=== PATIENT | female | born 1975 | race Caucasian/White ===

== ENCOUNTER 2019-11-25 08:36 | Observation (INO) | payer OTHER, SELFPAY ==
--- NOTE | 2019-11-25 09:29 | ER ---
Nurse's Notes [facility] Name: Shantelle Keith Age: 44 yrs Sex: Female : 1975 Arrival Date: 11/25/2019 Time: 08:41 Bed 8 Private MD: Diagnosis: Other chest pain;Obesity, unspecified;Edema, unspecified;Tobacco abuse counseling;Tobacco use;Solitary pulmonary nodule Presentation: 11/25 08:55 Presenting complaint: Substernal chest pain that radiates to left upper chest and hb shoulder, palpitations, and SOB x 2-3 days. Pain is described as tightness. Transition of care: patient was not received from another setting of care. Onset of symptoms was November 23, 2019. Risk Assessment: Do you want to hurt yourself or someone else? Patient reports no desire to harm self or others. Initial Sepsis Screen: Does the patient meet any 2 criteria? No. Patient's initial sepsis screen is negative. Does the patient have a suspected source of infection? No. Patient's initial sepsis screen is negative. Care prior to arrival: None. 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 - Social history:: Smoking status: Patient uses tobacco products, smokes one-half pack cigarettes per day. - Ebola Screening: : No symptoms or risks identified at this time. - Family history:: not pertinent. Screenin:22 Abuse screen: Denies threats or abuse. Denies injuries from another. Nutritional jl7 screening: No deficits noted. Tuberculosis screening: No symptoms or risk factors identified. Fall Risk IV access (20 points). Total Soto Fall Scale indicates No Risk (0-24 pts). Assessment: 09:10 General: Appears in no apparent distress. uncomfortable, Behavior is calm, cooperative, jl7 appropriate for age. Pain: Complains of pain in anterior aspect of left upper chest Pain radiates to left shoulder and arm Pain currently is 6 out of 10 on a pain scale. at worst was 10 out of 10 on a pain scale. Quality of pain is described as pressure, Pain began 2-3 days ago. Is intermittent. Neuro: Level of Consciousness is awake, alert, obeys commands, Oriented to person, place, time, situation. Cardiovascular: Reports chest pain, palpitations, shortness of breath, Heart tones S1 S2 present Patient's skin is warm and dry. Rhythm is regular. Respiratory: Reports shortness of breath at rest Airway is patent Respiratory effort is even, unlabored, Breath sounds are clear bilaterally. Derm: Skin is pink, warm \\T\\ dry. 09:35 Reassessment: Pt in radiology, medications will be administered once she returns. jl7 11:30 Reassessment: Pt returned from radiology. jl7 11:35 Reassessment: Pt refusing fluids at this time, states "I have diabetes insipidus and I jl7 don't want any more fluids.". 12:47 Reassessment: Attempted to call report to floor, receiving nurse Landy RN is at lunch at this time. Vital Signs: 09:01 BP 161 / 108; Pulse 90; Resp 16; Temp 97.2; Pulse Ox 100% ; Weight 145.15 kg; Height 5 hb ft. 6 in. (167.64 cm); Pain 6/10; 09:30 BP 142 / 84; Pulse 87; Resp 16 S; Pulse Ox 97% on R/A; jl7 11:30 BP 133 / 91; Pulse 80; Resp 19 S; Pulse Ox 97% on R/A; jl7 12:25 BP 126 / 94; Pulse 70; Resp 17 S; Pulse Ox 96% on R/A; jl7 09:01 Body Mass Index 51.65 (145.15 kg, 167.64 cm) ED Course: 08:41 Patient arrived in ED. mr 08:51 Kirk Alanis MD is Attending Physician. sam 08:56 Mihai Mishra, CESAR is Primary Nurse. jl7 08:56 Triage completed. hb 09:01 Arm band placed on. hb 09:06 EKG done, by land survey technician. reviewed by Kirk Alanis MD. at1 09:10 Missed attempt(s): 22 gauge in right forearm. jl7 09:22 Patient has correct armband on for positive identification. Bed in low position. Call jl7 light in reach. Side rails up X 1. conveyor monitor on. Pulse ox on. NIBP on. 09:22 Initial lab(s) drawn, by me, sent to lab. Inserted saline lock: 20 gauge in right jl7 antecubital area, using aseptic technique. Blood collected. 09:27 Bibi Lee MD is Hospitalizing Provider[facility] 09:30 Urine collected: clean catch specimen, clear. dh3 09:56 XRAY Chest (1 view) In Process Unspecified. EDMS 11:19 US Extremity Venous W Compression Varun In Process Unspecified. EDMS 11:20 CT Chest For PE Angio In Process Unspecified. EDMS 13:21 No provider procedures requiring assistance completed. Patient admitted, IV remains in jl7 place. intact, No redness/swelling at site. Administered Medications: 11:35 Drug: Aspirin Chewable Tablet 324 mg Route: PO; jl7 12:24 Follow up: Response: No adverse reaction jl7 11:35 Drug: Lovenox 100 mg Route: Sub-Q; Site: abdomen; jl7 12:24 Follow up: Response: No adverse reaction jl7 11:36 Drug: Lopressor (metoprolol TARTRATE) 50 mg Route: PO; jl7 12:24 Follow up: Response: No adverse reaction jl7 11:40 Drug: Lopressor 2.5 mg Route: IVP; Site: right antecubital; jl7 12:24 Follow up: Response: No adverse reaction jl7 12:28 Not Given (Patient Refused): NS 0.9% 1000 ml IV at 75 ml/hr continuous jl7 12:28 Not Given (Physician Discretion): Lopressor 2.5 mg IVP once; Hold for SBP <100 or HR jl7 <60. Outcome: :28 Decision to Hospitalize by Provider. [facility] 13:21 Admitted to Tele accompanied by tech, via wheelchair, room 208, with chart, Report jl7 called to CESAR Bill 13:21 Condition: stable 13:21 Discharge instructions given to family, Instructed on the need for admit, Demonstrated understanding of instructions. 13:22 Patient left the ED. jl7 Signatures: Dispatcher [employer] Kirk Yang MD MD cha Rivera, Ellen Saxena, coal bagger EKG Tat1 Elsie Lopez, CESAR RN Mihai Mishra RN RN jl7 Shira Finch 3 Corrections: (The following items were deleted from the chart) 11:38 10:08 BP 142 / 84; Pulse 87bpm; Resp 16bpm; Spontaneous; Pulse Ox 97% RA; jl7 jl7 12:27 12:25 LMP N/A - Hysterectomy [facility] jl7
--- NOTE | 2019-11-25 09:29 | EDPHYS ---
Physician Documentation [facility] Name: Shantelle Keith Age: 44 yrs Sex: Female : 1975 Arrival Date: 11/25/2019 Time: 08:41 Bed 8 Private MD: ED Physician Kirk Alanis HPI: 11/25 09:22 This 44 yrs old Female presents to ER via Ambulatory with complaints of sam Breathing Difficulty, Shoulder Pain. 09:22 The patient has shortness of breath at rest, with light activity. Onset: The sam symptoms/episode began/occurred 2 day(s) ago. Duration: The symptoms are continuous, and are steadily getting worse. The patient's shortness of breath has no apparent modifying factors. Associated signs and symptoms: Pertinent positives: chest pain, dizziness. Severity of symptoms: At their worst the symptoms were moderate in the emergency department the symptoms are unchanged. The patient has not experienced similar symptoms in the past. 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 - Social history:: Smoking status: Patient uses tobacco products, smokes one-half pack cigarettes per day. - Ebola Screening: : No symptoms or risks identified at this time. - Family history:: not pertinent. ROS: 09:22 Constitutional: Negative for fever, chills, and weight loss, Eyes: Negative for injury, sam pain, redness, and discharge, ENT: Negative for injury, pain, and discharge, Neck: Negative for injury, pain, and swelling, Abdomen/GI: Negative for abdominal pain, nausea, vomiting, diarrhea, and constipation, Back: Negative for injury and pain, : Negative for injury, bleeding, discharge, and swelling, MS/Extremity: Negative for injury and deformity, Skin: Negative for injury, rash, and discoloration, Neuro: Negative for headache, weakness, numbness, tingling, and seizure, Psych: Negative for depression, anxiety, suicide ideation, homicidal ideation, and hallucinations, Allergy/Immunology: Negative for hives, rash, and allergies, Endocrine: Negative for neck swelling, polydipsia, polyuria, polyphagia, and marked weight changes, Hematologic/Lymphatic: Negative for swollen nodes, abnormal bleeding, and unusual bruising. 09:22 Cardiovascular: Positive for chest pain. 09:22 Respiratory: Positive for shortness of breath, at rest. Exam: :22 Constitutional: This is a well developed, well nourished patient who is awake, alert, sam and in no acute distress. Head/Face: Normocephalic, atraumatic. Eyes: Pupils equal round and reactive to light, extra-ocular motions intact. Lids and lashes normal. Conjunctiva and sclera are non-icteric and not injected. Cornea within normal limits. Periorbital areas with no swelling, redness, or edema. ENT: Nares patent. No nasal discharge, no septal abnormalities noted. Tympanic membranes are normal and external auditory canals are clear. Oropharynx with no redness, swelling, or masses, exudates, or evidence of obstruction, uvula midline. Mucous membranes moist. Neck: Trachea midline, no thyromegaly or masses palpated, and no cervical lymphadenopathy. Supple, full range of motion without nuchal rigidity, or vertebral point tenderness. No Meningismus. Chest/axilla: Normal chest wall appearance and motion. Nontender with no deformity. No lesions are appreciated. Cardiovascular: Regular rate and rhythm with a normal S1 and S2. No gallops, murmurs, or rubs. Normal PMI, no JVD. No pulse deficits. Respiratory: Lungs have equal breath sounds bilaterally, clear to auscultation and percussion. No rales, rhonchi or wheezes noted. No increased work of breathing, no retractions or nasal flaring. Abdomen/GI: Soft, non-tender, with normal bowel sounds. No distension or tympany. No guarding or rebound. No evidence of tenderness throughout. Back: No spinal tenderness. No costovertebral tenderness. Full range of motion. Skin: Warm, dry with normal turgor. Normal color with no rashes, no lesions, and no evidence of cellulitis. Neuro: Awake and alert, GCS 15, oriented to person, place, time, and situation. Cranial nerves II-XII grossly intact. Motor strength 5/5 in all extremities. Sensory grossly intact. Cerebellar exam normal. Normal gait. Psych: Awake, alert, with orientation to person, place and time. Behavior, mood, and affect are within normal limits. 09:22 Musculoskeletal/extremity: Extremities: erythema, pain, swelling, tenderness. 09:24 Musculoskeletal/extremity: DVT Exam: negative Homans' sign noted on exam, no sam appreciated bluish discoloration, pain, swelling, tenderness, erythema, increased warmth. Vital Signs: 09:01 BP 161 / 108; Pulse 90; Resp 16; Temp 97.2; Pulse Ox 100% ; Weight 145.15 kg; Height 5 hb ft. 6 in. (167.64 cm); Pain 6/10; 09:30 BP 142 / 84; Pulse 87; Resp 16 S; Pulse Ox 97% on R/A; jl7 11:30 BP 133 / 91; Pulse 80; Resp 19 S; Pulse Ox 97% on R/A; jl7 12:25 BP 126 / 94; Pulse 70; Resp 17 S; Pulse Ox 96% on R/A; jl7 09:01 Body Mass Index 51.65 (145.15 kg, 167.64 cm) hb MDM: 08:51 Patient medically screened. 11/25 09:22 Order name: Basic Metabolic Panel; Complete Time: 10:52 sam 11/25 09:22 Order name: CBC with Diff; Complete Time: 09:58 11/25 09:22 Order name: LFT's; Complete Time: 10:52 sam 11/25 09:22 Order name: Magnesium; Complete Time: 10:52 11/25 09:22 Order name: NT PRO-BNP; Complete Time: 10:52 11/25 09:22 Order name: PT-INR; Complete Time: 09:58 [facility] 11/25 09:22 Order name: Troponin (emerg Dept Use Only); Complete Time: 10:52 [facility] 11/25 09:22 Order name: XRAY Chest (1 view) 11/25 09:22 Order name: Lipase; Complete Time: 10:52 [facility] 11/25 09:22 Order name: D-Dimer; Complete Time: 09:58 11/25 09:22 Order name: TSH; Complete Time: 10:52 [facility] 11/25 09:42 Order name: Urine Dipstick--Ancillary (enter results); Complete Time: 10:52 11/25 09:42 Order name: Urine --Ancillary (enter results); Complete Time: 10:52 11/25 09:50 Order name: US Extremity Venous W Compression Varun 11/25 09:22 Order name: EKG; Complete Time: 09:23 [facility] 11/25 09:22 Order name: Cardiac monitoring; Complete Time: 09:33 [facility] 11/25 09:22 Order name: EKG - Nurse/Tech; Complete Time: 09:33 [facility] 11/25 09:22 Order name: IV Saline Lock; Complete Time: 09:33 [facility] 11/25 09:22 Order name: Labs collected and sent; Complete Time: 09:33 [facility] 11/25 09:22 Order name: O2 Per Protocol; Complete Time: 09:33 [facility] 11/25 09:22 Order name: O2 Sat Monitoring; Complete Time: 09:23 [facility] 11/25 09:50 Order name: CT Chest For PE Angio 11/25 11:37 Order name: CONS Pharmacy Consult [facility] 11/25 12:25 Order name: Echo w/ Doppler [facility] 11/25 09:22 Order name: Urine Dipstick-Ancillary (obtain specimen); Complete Time: 10:23 [facility] 11/25 09:22 Order name: Urine Test (obtain specimen); Complete Time: 10:23 [facility] Administered Medications: 11:35 Drug: Aspirin Chewable Tablet 324 mg Route: PO; jl7 12:24 Follow up: Response: No adverse reaction jl7 11:35 Drug: Lovenox 100 mg Route: Sub-Q; Site: abdomen; jl7 12:24 Follow up: Response: No adverse reaction jl7 11:36 Drug: Lopressor (metoprolol TARTRATE) 50 mg Route: PO; jl7 12:24 Follow up: Response: No adverse reaction jl7 11:40 Drug: Lopressor 2.5 mg Route: IVP; Site: right antecubital; jl7 12:24 Follow up: Response: No adverse reaction jl7 12:28 Not Given (Patient Refused): NS 0.9% 1000 ml IV at 75 ml/hr continuous jl7 12:28 Not Given (Physician Discretion): Lopressor 2.5 mg IVP once; Hold for SBP <100 or HR jl7 <60. Disposition: 01/17/20 09:28 Hospitalization ordered by Bibi Lee for Observation. Preliminary diagnosis are Other chest pain, Obesity, unspecified, Edema, unspecified, Tobacco abuse counseling, Tobacco use, Solitary pulmonary nodule. - Bed requested for Telemetry/MedSurg (observation). - Status is Observation. mayela - Condition is Fair. - Problem is new. - Symptoms have improved. UTI on Admission? No Signatures: Dispatcher [employer] EDMS Wanda Kellogg RN RN dw Anderson, Corey, MD MD cha Baxter, Heather, RN RN Mihai Larson RN RN [email or web address] Tessa Reid Corrections: (The following items were deleted from the chart) 09:34 09:28 Hospitalization Ordered by Bibi Lee MD for Observation. Preliminary eb diagnosis is Other chest pain; Obesity, unspecified; Edema, unspecified; Tobacco abuse counseling; Tobacco use. Bed requested for Telemetry/MedSurg (observation). Status is Observation. Condition is Fair. Problem is new. Symptoms have improved. UTI on Admission? No. sam 12:00 09:34 11/25/2019 09:28 Hospitalization Ordered by Bibi Lee MD for Observation. [email or web address] Preliminary diagnosis is Other chest pain; Obesity, unspecified; Edema, unspecified; Tobacco abuse counseling; Tobacco use. Bed requested for Telemetry/MedSurg (observation). Status is Observation. Condition is Fair. Problem is new. Symptoms have improved. UTI on Admission? No. eb 12:20 12:00 11/25/2019 09:28 Hospitalization Ordered by Bibi Lee MD for Observation. sam Preliminary diagnosis is Other chest pain; Obesity, unspecified; Edema, unspecified; Tobacco abuse counseling; Tobacco use. Bed requested for Telemetry/MedSurg (observation). Status is Observation. Condition is Fair. Problem is new. Symptoms have improved. UTI on Admission? No. dw 13:22 12:20 11/25/2019 09:28 Hospitalization Ordered by Bibi Lee MD for Observation. [email or web address] Preliminary diagnosis is Other chest pain; Obesity, unspecified; Edema, unspecified; Tobacco abuse counseling; Tobacco use; Solitary pulmonary nodule. Bed requested for Telemetry/MedSurg (observation). Status is Observation. Condition is Fair. Problem is new. Symptoms have improved. UTI on Admission? No. sam
[2019-11-25] MEDS ORDERED: ENOXAPARIN 100 MG/ML SYR SQ ONE (09:40)
[2019-11-25] MEDS ORDERED: ASPIRIN 81 MG CHEWABLE TABLET ONE (09:40)
[2019-11-25] MEDS ORDERED: METOPROLOL TAR 50 MG TAB ONE (09:40)
[2019-11-25] MEDS ORDERED: NA CHLORIDE 0.9% 0 ML ONE (09:41)
[2019-11-25 09:42] LABS: Absolute Lymphocytes (CBC) 1.9 K/uL (0.7-4.9); Basophils % 0.9 % (0-1.3); Hematocrit 41.9 % (36.0-45.0); RBC Red Blood Cell Count 4.88 M/uL (3.86-4.86)
[2019-11-25 09:47] LABS: Protime INR 1.04
[2019-11-25 10:10] LABS: Urine Blood NEGATIVE (NEG); Urine Glucose NEGATIVE (NEG); Urine Protein NEGATIVE (NEG); Urine pH 8.5 (5.0-7.0)
[2019-11-25 10:11] LABS: ALT/SGPT 17 U/L (12-78); AST/SGOT 12 U/L (15-37); Albumin 3.3 g/dL (3.4-5.0); Alkaline Phosphatase 78 U/L (45-117); BUN Blood Urea Nitrogen 11 mg/dL (7-18); Bicarbonate 33 mmol/L (21-32); Bilirubin Direct 0.1 mg/dL (0-0.2); Bilirubin Total 0.3 mg/dL (0.2-1.0); Glucose Level 94 mg/dL (74-106); Lipase 151 U/L (73-393); Magnesium 2.2 mg/dL (1.8-2.4); NT PRO-BNP 22 pg/mL (<125); Potassium 3.8 mmol/L (3.5-5.1); Protein, Total 7.1 g/dL (6.4-8.2); Sodium Level 143 mmol/L (136-145); Troponin (Emerg Dept Use Only) < 0.02 ng/mL (0.0-0.045)
[2019-11-25] MEDS ORDERED: ALBUTEROL 2.5 MG/3 ML NEB SOL NEB PRN (11:35)
[2019-11-25] MEDS ORDERED: ACETAMINOPHEN 500 MG TAB PO PRN (11:35)
[2019-11-25] MEDS ORDERED: ONDANSETRON 4 MG/2 ML VIAL IV PRN (11:35)
--- NOTE | 2019-11-25 11:37 | P.HP ---
Certification for Inpatient Patient admitted to: Observation Practitioner: I am a practitioner with admitting privileges, knowledge of patient current condition, hospital course, and medical plan of care. Services: Services provided to patient in accordance with Admission requirements found in Title 42 Section 412.3 of the Code of Federal Regulations Patient History Date of Service: 11/25/19 Reason for admission: Chest pain History of Present Illness: Ms. Keith is 44 y/o female with h/o hypertension who presented with c/o substernal chest pain that started yesterday. Pain was initially mild, felt like pressure and associated with shortness of breath. Last night, pain awoke her from sleep as it was at high intensity. Pain did not radiate and non exertional. She was diaphoretic with pain. She is currently chest pain free. She had similar pain 2 months ago, was evaluated at [facility], discharged after 24 hours of observation as ACS was ruled out. Allergies No Known Allergies Allergy (Unverified 11/25/19 11:54) Home medications list reviewed: Yes Home Medications: Atorvastatin Calcium 20 mg PO BEDTIME 11/25/19 Desmopressin (Nonrefrigerated) [Desmopressin 10 Mcg/0.1 ml Spr] 1 spray NS BID 11/25/19 Losartan/Hydrochlorothiazide [Losartan-Hctz 100-25 mg Tab] 1 each PO BEDTIME - Past Medical/Surgical History -: Hypertension -: Hyperlipidemia -: Diabetes Insipidus -: C section -: Cholecysectomy - Social History Smoking Status: Current every day smoker Alcohol use: No CD- Drugs: No Review of Systems 10-point ROS is otherwise unremarkable Respiratory: Shortness of Breath Cardiovascular: Chest Pain Physical Examination - Physical Exam General: Alert, In no apparent distress, Obese HEENT: Atraumatic, PERRLA, Mucous membr. moist/pink, EOMI, Sclerae nonicteric Neck: Supple, 2+ carotid pulse no bruit, No LAD, Without JVD or thyroid abnormality Respiratory: Clear to auscultation bilaterally, Normal air movement Cardiovascular: Regular rate/rhythm, Normal S1 S2, Edema Gastrointestinal: Normal bowel sounds, No tenderness Musculoskeletal: No tenderness, Swelling Integumentary: No rashes Neurological: Normal gait, Normal speech, Normal strength at 5/5 x4 extr, Normal tone, Normal affect Lymphatics: No axilla or inguinal lymphadenopathy - Studies Laboratory Data (last 24 hrs) 11/25/19 09:20: PT 12.2, INR 1.04 11/25/19 09:20: WBC 6.2, Hgb 13.5, Hct 41.9, Plt Count 217 11/25/19 09:20: Sodium 143, Potassium 3.8, BUN 11, Creatinine 0.71, Glucose 94, Magnesium 2.2, Total Bilirubin 0.3, AST 12 L, ALT 17, Alkaline Phosphatase 78, Lipase 151 Imagings Data: IMPRESSION: Negative for a pulmonary embolism. COPD 1 centimeter noncalcified nodule left lower lobe. PET CT scan recommended IMPRESSION: No DVT in either lower extremity. Assessment and Plan - Plan Ms Keith is 44 y/o female with h/o DI, Morbid obesity, HTN pw chest pain #Chest pain-rule out ACS. Trop X1 neg, EKG with no acute ischemic changes. -Patient with risk factors -D dimer elevated, PE ruled out -Aspirin, statin -Echocardiogram, consult explosive technician -possible anxiety +/- lung etiology #Hypertension- resumed on antihypertensive -monitor BP closely #DI- Na is wnl. -resume desmopressin #Obesity & tobacco use- lifestyle modification strongly encouraged #Lung nodule- PET scan and further work recommended. -outpatient follow #COPD- per imaging - needs outpt work up -duonebs. no acute exacerbation noted. DVT ppx- lovenox patient is full dispo-obs admission. - Advance Directives Does patient have a Living Will: No Does patient have a Durable POA for Healthcare: No
--- NOTE | 2019-11-25 11:38 | RAD REPORT ---
EXAM DESCRIPTION: CT - Chest For Pe Angio - 11/25/2019 11:20 am CLINICAL HISTORY: Chest pain COMPARISON: None. TECHNIQUE: Dynamically enhanced axial 3 mm thick images of the chest were obtained during administra tion of <100> mL Isovue 370 IV contrast. Coronal and oblique reconstruction images were generated and reviewed. Exam utilizes a protocol for optimal evaluation of pulmonary arterial tree. Maximum intensity projections 3D imaging was utilized All CT scans are performed using dose optimization technique as appropriate and may include automated exposure control or mA/KV adjustment according to patient size. FINDINGS: The opacification of the subsegmental pulmonary arteries is suboptimal limiting evaluation . A pulmonary embolus is not seen. A thoracic aortic aneurysm is not noted. A pleural effusion is not seen. A pericardial effusion is not seen. Calcified lung granulomas are present. A 1 centimeter noncalcified nodule is present within the left lower lobe. COPD IMPRESSION: Negative for a pulmonary embolism. 1 centimeter noncalcified nodule left lower lobe. PET CT scan recommended
--- NOTE | 2019-11-25 11:39 | RAD REPORT ---
EXAM DESCRIPTION: US - Extrem Venous W Compress Varun - 11/25/2019 11:19 am CLINICAL HISTORY: Bilateral leg pain and swelling COMPARISON: None. TECHNIQUE: Real-time sonographic evaluation of the bilateral lower extremity common femoral, superfi cial femoral, popliteal and posterior tibial veins was performed. FINDINGS: Normal compressibility, flow augmentation, phasic flow and spontaneous flow are identified in the right lower extremity common femoral, superficial femoral, popliteal and posterior tibial vei ns. No intraluminal filling defects seen. The midportion of the left superficial femoral vein is only partially compressible. However, there is no visible clot in this region. There is normal velocity and waveform. The partial compression may b e due to patient moving during the examination. Patient indicated leg pain. Remaining areas of the le ft lower extremity show full compression with no intraluminal filling defect and no suspicious wavefo rm pattern. IMPRESSION: No DVT in either lower extremity.
--- NOTE | 2019-11-25 11:40 | RAD REPORT ---
EXAM DESCRIPTION: Siva Single View11/25/2019 9:56 am CLINICAL HISTORY: Chest pain COMPARISON: none FINDINGS: Calcified granulomas are present within the lungs. The left lower lobe nodule seen on the CT scan of the same date is not as well visualized on this exa m. Please refer to that report for recommendation The heart is normal size
[2019-11-25] MEDS ORDERED: METOPROLOL TARTRATE 5 MG/5 ML INJ IV ONE (11:42)
[2019-11-25 13:27] VITALS: TEMP 97.2
[2019-11-25 13:31] VITALS: BP 126/94; O2SAT 96; BMI 53.1
--- NOTE | 2019-11-25 15:35 | P.DS ---
Admission Date: 11/25/19 Discharge Date: 11/25/19 Disposition: AMA-LEFT AGAINST MEDICAL ADVIC Reason for Admission: Chest pain Brief History of Present Illness: Ms. Keith is 44 y/o female with h/o hypertension who presented with c/o substernal chest pain that started yesterday. Pain was initially mild, felt like pressure and associated with shortness of breath. Last night, pain awoke her from sleep as it was at high intensity. Pain did not radiate and non exertional. She was diaphoretic with pain. She is currently chest pain free. She had similar pain 2 months ago, was evaluated at [facility], discharged after 24 hours of observation as ACS was ruled out. Ms Keith is 44 y/o female with h/o DI, Morbid obesity, HTN pw chest pain #Chest pain-rule out ACS. Trop X1 neg, EKG with no acute ischemic changes. 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 -resume desmopressin #Obesity & tobacco use- lifestyle modification strongly encouraged #Lung nodule- PET scan and further work recommended. -outpatient follow #COPD- per imaging - needs outpt work up -duonebs. no acute exacerbation noted. Patient left AMA shortly after being admitted Vital Signs/Physical Exam: Temp Pulse Resp BP Pulse Ox 97.2 F 70 17 126/94 H 11/25/19 09:01 11/25/19 12:25 11/25/19 12:25 11/25/19 12:25 Laboratory Data at Discharge: WBC 6.2 K/uL (4.3-10.9) 11/25/19 09:20 Hgb 13.5 g/dL (12.0-15.0) 11/25/19 09:20 Hct 41.9 % (36.0-45.0) 11/25/19 09:20 Plt Count 217 K/uL (152-406) 11/25/19 09:20 PT 12.2 SECONDS (9.5-12.5) 11/25/19 09:20 INR 1.04 11/25/19 09:20 Sodium 143 mmol/L (136-145) 11/25/19 09:20 Potassium 3.8 mmol/L (3.5-5.1) 11/25/19 09:20 BUN 11 mg/dL (7-18) 11/25/19 09:20 Creatinine 0.71 mg/dL (0.55-1.3) 11/25/19 09:20 Glucose 94 mg/dL (74-106) 11/25/19 09:20 Magnesium 2.2 mg/dL (1.8-2.4) 11/25/19 09:20 Total Bilirubin 0.3 mg/dL (0.2-1.0) 11/25/19 09:20 AST 12 U/L (15-37) L 11/25/19 09:20 ALT 17 U/L (12-78) 11/25/19 09:20 Alkaline Phosphatase 78 U/L (45-117) 11/25/19 09:20 Troponin I Cancelled 11/25/19 15:00 Lipase 151 U/L (73-393) 11/25/19 09:20 Home Medications: Atorvastatin Calcium 20 mg PO BEDTIME 11/25/19 Desmopressin (Nonrefrigerated) [Desmopressin 10 Mcg/0.1 ml Spr] 1 spray NS BID 11/25/19 Losartan/Hydrochlorothiazide [Losartan-Hctz 100-25 mg Tab] 1 each PO BEDTIME
[2019-11-25] MEDS ORDERED: HOME MED 1 EA UNK (Losartan/Hydrochlorothiazide [Losartan-Hctz 100-25 Mg Tab] 1 EACH) PO SCH (21:00)
[2019-11-25] MEDS ORDERED: ATORVASTATIN 20 MG TAB PO SCH (21:00)
[2019-11-25] MEDS ORDERED: LOSARTAN/HCTZ 50-12.5 PO SCH (21:00)
[2019-11-25] MEDS ORDERED: DESMOPRESSIN NS SCH (21:00)
[2019-11-25] MEDS ORDERED: [UNRECOGNIZED DRUG - OTHER] NS SCH (21:00)
--- NOTE | 2019-11-26 06:38 | EKG ---
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
[2019-11-26] MEDS ORDERED: ASPIRIN 81 MG CHEWABLE TABLET PO SCH (09:00)
[2019-11-26] MEDS ORDERED: ENOXAPARIN 40 MG/0.4 ML SQ SCH (17:00)
== END 2019-11-25 15:08 | disposition left against medical advice (07) ==
LOC: ER 08:36 → ERHOLD 11:35 → 2ND 13:04
PROVIDERS: ADMIT Hospitalist; ATTEND Hospitalist
DX: R07.9 Chest pain, unspecified (principal); R91.1 Solitary pulmonary nodule; I10 Essential (primary) hypertension; E66.9 Obesity, unspecified; Z68.43 Body mass index [BMI] 50.0-59.9, adult; J44.9 Chronic obstructive pulmonary disease, unspecified; Z53.29 Procedure and treatment not carried out because of patient's decision for other reasons
CPT/HCPCS: 36415; 71045; 71275; 80048; 80076; 81003; 81025; 83690; 83735; 83880; 84443; 84484; 85025; 85379; 85610; 93005; 93970; 96372; 96374; 99285; G0378; J1650; J7030; Q9967

== ENCOUNTER 2021-08-11 22:07 | Inpatient (IN) | payer SELFPAY ==
[2021-08-11 23:44] LABS: Absolute Lymphocytes (CBC) 1.6 K/uL (0.7-4.9); Basophils % 0.8 % (0-1.3); Hematocrit 40.4 % (36.0-45.0); Lymphocytes % 22.1 % (15.3-44.8); MPV 7.9 fL (7.6-11.3); RBC Red Blood Cell Count 4.56 M/uL (3.86-4.86)
[2021-08-11 23:45] LABS: Protime INR 1.14
[2021-08-12 00:15] LABS: ALT/SGPT 22 U/L (12-78); AST/SGOT 13 U/L (15-37); Albumin 3.1 g/dL (3.4-5.0); Alkaline Phosphatase 73 U/L (45-117); BUN Blood Urea Nitrogen 8 mg/dL (7-18); Bicarbonate 30 mmol/L (21-32); Bilirubin Direct < 0.1 mg/dL (0-0.2); Bilirubin Total 0.4 mg/dL (0.2-1.0); Glucose Level 101 mg/dL (74-106); Magnesium 2.3 mg/dL (1.8-2.4); NT PRO-BNP 243 pg/mL (<125); Potassium 3.7 mmol/L (3.5-5.1); Protein, Total 6.9 g/dL (6.4-8.2); Sodium Level 144 mmol/L (136-145); Troponin (Emerg Dept Use Only) < 0.02 ng/mL (0.0-0.045)
[2021-08-12 01:28] LABS: Urine Blood Negative (Negative); Urine Glucose Negative (Negative); Urine Protein Negative (Negative); Urine Specific Gravity 1.025 (1.005-1.030); Urine pH 5.5 (5.0-7.0)
[2021-08-12 01:35] LABS: Urine Bacteria <20 /HPF (<20); Urine RBC <5 /HPF (NONE SEEN); Urine Urothelial Cells <5 /HPF (NONE SEEN)
[2021-08-12 01:35] LABS: Urine Specific Gravity/Preg 1.025 (1.005-1.030)
--- NOTE | 2021-08-12 01:38 | ER ---
Nurse's Notes [facility] Name: Shantelle Keith Age: 45 yrs Sex: Female : 1975 Arrival Date: 08/11/2021 Time: 22:11 Bed 20 Private MD: Diagnosis: Cellulitis of right lower limb;Edema, unspecified Presentation: 08/11 22:19 Chief complaint: Patient states: Reports swelling to lower legs, right worse than left; lp1 reports drainage from lower legs; Cannot lay flat without feeling short of breath; Has been worsening over the last 2 months; Reports toes are turning purple in color due to swelling. Coronavirus screen: At this time, the client does not indicate any symptoms associated with coronavirus-19. Ebola Screen: No symptoms or risks identified at this time. Initial Sepsis Screen: Does the patient meet any 2 criteria? No. Patient's initial sepsis screen is negative. Does the patient have a suspected source of infection? No. Patient's initial sepsis screen is negative. Risk Assessment: Do you want to hurt yourself or someone else? Patient reports no desire to harm self or others. Onset of symptoms was August 11, 2021. 22:19 Method Of Arrival: Wheelchair lp1 22:19 Acuity: LAUREN 3 lp1 Triage Assessment: 22:44 General: Appears distressed, Behavior is calm, cooperative. cw2 22:44 Pain: Denies pain. 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 - Social history:: Smoking status: Patient reports the use of cigarette tobacco products, smokes one pack cigarettes per day. Screenin:25 Abuse screen: Denies threats or abuse. Nutritional screening: No deficits noted. cw2 Tuberculosis screening: No symptoms or risk factors identified. Fall Risk None identified. Assessment: 22:26 General: Appears distressed, Behavior is calm, cooperative. Neuro: No deficits noted. cw2 Cardiovascular: No deficits noted. Respiratory: No deficits noted. GI: No deficits noted. Derm: Skin Skin is Skin is Skin temperature is Wound noted. 08/12 00:00 Reassessment: Patient appears in no apparent distress at this time. No changes from cw2 previously documented assessment. Patient and/or family updated on plan of care and expected duration. Pain level reassessed. Vital Signs: 08/11 22:19 BP 158 / 108; Pulse 97; Resp 20; Temp 97.3(TE); Pulse Ox 98% on R/A; Height 5 ft. 5 in. lp1 (165.10 cm); Pain 10/10; 22:31 Weight 169 kg (M); lp1 22:43 BP 139 / 82; Pulse 92; Pulse Ox 97% on R/A; cw2 08/12 00:50 BP 132 / 82; Pulse 94; Resp 16; Pulse Ox 98% on R/A; cw2 02:00 BP 134 / 89; Pulse 91; Resp 16; Pulse Ox 97% on R/A; Pain 0/10; cw2 03:00 BP 142 / 89; Pulse 95; Resp 17; Pulse Ox 98% on R/A; cw2 08/11 22:31 Body Mass Index 62.00 (169.00 kg, 165.10 cm) lp1 ED Course: 08/11 22:11 Patient arrived in ED. ja2 22:22 Triage completed. lp1 22:23 Arm band placed on. lp1 22:24 Marcelo Puga, CESAR is Primary Nurse. cw2 22:24 Kirk Manjarrez PA is PHCP. cp 22:24 Jarek Cobos MD is Attending Physician. cp 22:25 No apparent distress. cw2 22:25 Patient has correct armband on for positive identification. Placed in gown. Bed in low cw2 position. Call light in reach. Side rails up X2. Pulse ox on. NIBP on. 22:25 No provider procedures requiring assistance completed. cw2 23:15 XRAY Chest (1 view) In Process Unspecified. EDMS 08/12 00:01 US Extremity Venous W Compression Varun In Process Unspecified. EDMS 00:08 NT PRO-BNP Sent. cw2 00:08 Magnesium Sent. cw2 00:08 Liver (Hepatic) Function Sent. cw2 00:08 Basic Metabolic Panel Sent. cw2 00:08 Blood Culture Adult (2) Sent. cw2 00:08 Procalcitonin Sent. cw2 00:08 NT PRO-BNP Sent. cw2 00:08 Magnesium Sent. cw2 00:08 LFT's Sent. cw2 00:08 CBC with Diff Sent. cw2 00:08 Basic Metabolic Panel Sent. cw2 00:08 Inserted saline lock: 18 gauge in right antecubital area, using aseptic technique. cw2 00:09 Troponin (emerg Dept Use Only) Sent. cw2 01:37 Adalberto Luis MD is Hospitalizing Provider. cp 02:05 Missed attempt(s): 18 gauge in right upper arm. Bleeding controlled, band aid applied, bb catheter tip intact. 02:10 Inserted Accessed peripheral vein via ultrasound, utilizing dynamic ultrasound bb technique PowerGlide 20 g 10 cm with good blood return and flushes easily, using aseptic technique per hospital protocol. 02:53 COVID-19 : Document "Date of Symptom Onset" if Symptomatic. Sent. cw2 02:55 IV discontinued, 1ST 18G TO RAC WAS ACCIDENTLY REMOVED BY PT. BLEEDING CONTROLLED. cw2 03:21 CORONAVIRUS Sent. cw2 Administered Medications: 02:21 Drug: Lasix (furosemide) 40 mg Route: IVP; Site: left antecubital; cw2 03:23 Follow up: Response: No adverse reaction cw2 02:41 Drug: Cefepime 2 grams Route: IVPB; Rate: 200 ml/hr; Infused Over: 30 mins; Site: right cw2 antecubital; 03:21 Follow up: IV Status: Completed infusion; IV Intake: 100ml cw2 02:41 Drug: vancoMYCIN 1.5 grams Route: IVPB; Rate: calculated rate; Site: right antecubital; cw2 03:21 Follow up: IV Status: Completed infusion; IV Intake: 250ml cw2 Intake: 03:21 IV: 250ml; Total: 250ml. cw2 03:21 IV: 100ml; Total: 350ml. cw2 Outcome: 01:38 Decision to Hospitalize by Provider. cp 05:22 Patient left the ED. cw2 Signatures: Dispatcher [employer] EDMS Nancy Young RN RN bb Apoorva Ma RN RN lp1 Kirk Manjarrez PA PA cp Alexander, Jessica ja2 Williams, Christopher, CESAR RN cw2
--- NOTE | 2021-08-12 01:38 | EDPHYS ---
Physician Documentation [facility] Name: Shantelle Keith Age: 45 yrs Sex: Female : 1975 Arrival Date: 08/11/2021 Time: 22:11 Bed 20 Private MD: ED Physician Jarek Cobos HPI: 08/11 23:00 This 45 yrs old Female presents to ER via Wheelchair with complaints of Leg cp Pain, Leg Swelling. 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 - Social history:: Smoking status: Patient reports the use of cigarette tobacco products, smokes one pack cigarettes per day. ROS: 23:05 Constitutional: Positive for chills, Negative for body aches, fever, poor PO intake. cp 23:05 Eyes: Negative for injury, pain, redness, and discharge. cp 23:05 ENT: Negative for ear pain, sore throat, difficulty swallowing, difficulty handling secretions. 23:05 Cardiovascular: Positive for edema, Negative for chest pain, palpitations. 23:05 Respiratory: Positive for orthopnea, Negative for cough. 23:05 Abdomen/GI: Negative for abdominal pain, nausea, vomiting, and diarrhea. 23:05 MS/extremity: Positive for pain, swelling, of the right lower leg and left lower leg, Negative for paresthesias. 23:05 Skin: Positive for erythema, of the right lower leg. 23:05 Neuro: Negative for altered mental status, dizziness, headache, syncope, weakness. 23:05 All other systems are negative. Exam: 23:10 Constitutional: The patient appears in no acute distress, alert, awake, cp non-diaphoretic, non-toxic, well developed, well nourished, obese. 23:10 Head/Face: Normocephalic, atraumatic. cp 23:10 Eyes: Periorbital structures: appear normal, Conjunctiva: normal, no exudate, no injection, Sclera: no appreciated abnormality, Lids and lashes: appear normal, bilaterally. 23:10 ENT: External ear(s): are unremarkable, Nose: is normal, Mouth: Lips: moist, Oral mucosa: moist, Posterior pharynx: Airway: no evidence of obstruction, patent. 23:10 Neck: ROM/movement: is normal, is supple, without pain, no range of motions limitations. 23:10 Chest/axilla: Inspection: normal, Palpation: is normal, no crepitus, no tenderness. 23:10 Cardiovascular: Rate: normal, Rhythm: regular, Edema: pedal edema, that is marked, JVD: is not appreciated. 23:10 Respiratory: the patient does not display signs of respiratory distress, Respirations: normal, no use of accessory muscles, no retractions, labored breathing, is not present, intercostal retractions, are absent, Breath sounds: decreased breath sounds, are not appreciated, stridor, is not appreciated, wheezing: is not appreciated. 23:10 Abdomen/GI: Exam negative for discomfort, distension, guarding, Inspection: obese 23:10 Back: pain, is absent, ROM is normal. 23:10 Skin: cellulitis, that is moderate, well demarcated, on the right lower leg. 23:10 Neuro: Orientation: to person, place \\T\\ time. Mentation: is normal. 08/12 00:40 ECG was reviewed by the Attending Physician. cp Vital Signs: 08/11 22:19 BP 158 / 108; Pulse 97; Resp 20; Temp 97.3(TE); Pulse Ox 98% on R/A; Height 5 ft. 5 in. lp1 (165.10 cm); Pain 10/10; 22:31 Weight 169 kg (M); lp1 22:43 BP 139 / 82; Pulse 92; Pulse Ox 97% on R/A; cw2 08/12 00:50 BP 132 / 82; Pulse 94; Resp 16; Pulse Ox 98% on R/A; cw2 02:00 BP 134 / 89; Pulse 91; Resp 16; Pulse Ox 97% on R/A; Pain 0/10; cw2 03:00 BP 142 / 89; Pulse 95; Resp 17; Pulse Ox 98% on R/A; cw2 08/11 22:31 Body Mass Index 62.00 (169.00 kg, 165.10 cm) lp1 MDM: 08/11 22:26 Patient medically screened. cp 23:00 Differential diagnosis: DVT, cellulitis, sepsis, lymphadema. 08/12 01:00 Data reviewed: vital signs, nurses notes, lab test result(s), EKG, radiologic studies, cp plain films, ultrasound. 01:00 Test interpretation: by ED physician or midlevel provider: ECG, plain radiologic cp studies. Counseling: I had a detailed discussion with the patient and/or guardian regarding: the historical points, exam findings, and any diagnostic results supporting the discharge/admit diagnosis, lab results, radiology results. 01:15 Physician consultation: Estrada Dennis was contacted at 01:15, regarding admission, to the telemetry unit. patient's condition, and will see patient in ED. 10 22:54 Order name: Basic Metabolic Panel cp 08/11 22:54 Order name: CBC with Diff cp 08/11 22:54 Order name: LFT's cp 08/11 22:54 Order name: Magnesium cp 08/11 22:54 Order name: NT PRO-BNP cp 08/11 22:54 Order name: PT-INR; Complete Time: 00:41 cp 08/12 00:42 Interpretation: Abnormal: PT 13.1. cp 08/11 22:54 Order name: Troponin (emerg Dept Use Only); Complete Time: 00:41 cp 08/11 22:54 Order name: Urine Microscopic Only cp 08/11 22:54 Order name: Lactate; Complete Time: 00:41 cp 08/11 22:54 Order name: Procalcitonin; Complete Time: 00:49 cp 08/11 22:54 Order name: Blood Culture Adult (2) cp 08/11 22:55 Order name: Basic Metabolic Panel; Complete Time: 00:41 EDMS 08/12 00:42 Interpretation: Normal except: CL 108; GFR 81. cp 08/11 22:55 Order name: CBC with Automated Diff; Complete Time: 00:41 EDMS 08/12 00:42 Interpretation: Normal except: RDW 16.2. cp 08/11 22:55 Order name: Liver (Hepatic) Function; Complete Time: 00:41 EDMS 08/12 00:42 Interpretation: Normal except: AST 13; ALB 3.1; GLOB 3.8; A/G 0.8. cp 08/11 22:54 Order name: XRAY Chest (1 view) cp 08/11 22:54 Order name: EKG; Complete Time: 22:55 cp 08/11 22:54 Order name: Cardiac monitoring; Complete Time: 00:08 cp 08/11 22:54 Order name: EKG - Nurse/Tech; Complete Time: 00:53 cp 08/11 22:54 Order name: IV Saline Lock; Complete Time: 00:53 cp 08/11 22:54 Order name: US Extremity Venous W Compression Varun cp 08/11 22:55 Order name: Magnesium; Complete Time: 00:41 EDMS 08/11 22:55 Order name: NT PRO-BNP; Complete Time: 00:41 EDMS 08/12 01:27 Order name: Urine Dipstick-Ancillary EDWI 08/12 01:32 Order name: Urine --Ancillary (enter results) 08/12 02:36 Order name: COVID-19 : Document "Date of Symptom Onset" if Symptomatic. bb 08/12 03:01 Order name: CORONAVIRUS EDWI 08/12 03:54 Order name: SARS-COV-2 RT PCR EDMS 08/11 22:54 Order name: Labs collected and sent; Complete Time: 00:53 cp 08/11 22:54 Order name: O2 Per Protocol; Complete Time: 00:09 cp 08/11 22:54 Order name: O2 Sat Monitoring; Complete Time: 00:09 cp 08/11 22:54 Order name: Urine Dipstick-Ancillary (obtain specimen); Complete Time: 01:15 cp 08/11 22:54 Order name: Urine Test (obtain specimen); Complete Time: 01:15 cp EC:40 Rate is 84 beats/min. Rhythm is regular. NV interval is normal. QRS interval is normal. cp QT interval is normal. T waves are Inverted in lead aVR. Interpreted by me. Reviewed by me. Administered Medications: 02:21 Drug: Lasix (furosemide) 40 mg Route: IVP; Site: left antecubital; cw2 03:23 Follow up: Response: No adverse reaction cw2 02:41 Drug: Cefepime 2 grams Route: IVPB; Rate: 200 ml/hr; Infused Over: 30 mins; Site: right cw2 antecubital; 03:21 Follow up: IV Status: Completed infusion; IV Intake: 100ml cw2 02:41 Drug: vancoMYCIN 1.5 grams Route: IVPB; Rate: calculated rate; Site: right antecubital; cw2 03:21 Follow up: IV Status: Completed infusion; IV Intake: 250ml cw2 Disposition: 05:32 Co-signature as Attending Physician, Jarek Cobos MD. 7 Disposition Summary: 08/12/21 01:38 Hospitalization Ordered Hospitalization Status: Inpatient Admission cp Provider: Adalberto Luis cp Location: Telemetry/MedSurg (Inpatient) cp Condition: Stable cp Problem: new cp Symptoms: have improved cp Bed/Room Type: Standard cp Room Assignment: 421(08/12/21 04:27) tl1 Diagnosis - Cellulitis of right lower limb cp - Edema, unspecified cp Forms: - Medication Reconciliation Form cp - SBAR form cp Signatures: Dispatcher [employer] EDApoorva Rose RN RN 1 Dayana Edge RN RN tl1 Kirk Manjarrez PA PA cp Jarek Cobos MD MD 7 Marcelo Puga RN RN cw2 Corrections: (The following items were deleted from the chart) 04:27 01:38 cp tl1
--- NOTE | 2021-08-12 02:02 | P.HP ---
Certification for Inpatient Patient admitted to: Inpatient With expected LOS: >2 Midnights Patient will require the following post-hospital care: None Practitioner: I am a practitioner with admitting privileges, knowledge of patient current condition, hospital course, and medical plan of care. Services: Services provided to patient in accordance with Admission requirements found in Title 42 Section 412.3 of the Code of Federal Regulations <Estrada Dennis - Last Filed: 08/12/21 01:55> Patient History Date of Service: 08/12/21 Primary Care Provider: Raciel moran Reason for admission: Right lower extremity cellulitis History of Present Illness: 45-year-old female with history of diabetes insipidus, COPD, hypertension, hyperlipidemia presents emergency department for right lower extremity erythema/tenderness as well as bilateral lower extremity edema. Patient reports significant increase in swelling to bilateral lower extremities over the course of last few weeks, noticed redness over the course last few days. Patient with significant erythema/pitting edema/tenderness to the right lower extremity with 3+ pitting edema to both right and left lower extremities but erythema noted only to the right. Labs were significant for normal white blood cell count normal procalcitonin, sodium 144 chloride 108 GFR 81 BNP 243. Clinically patient has significant cellulitis in the right lower extremity with severe 3+ pitting edema to bilateral lower extremities. Will admit with IV antibiotics cefepime, vancomycin. Blood cultures obtained, ultrasound right lower extremity negative for DVT. Patient reports he has had problems with swelling in the past, has been seeing her primary care doctor but not endocrinology or nephrology. Will admit for further evaluation and management. - Past Medical/Surgical History Diabetic: Yes -: Hypertension -: Hyperlipidemia -: Diabetes Insipidus -: COPD -: C section -: Cholecysectomy Psychosocial/ Personal History: Patient lives at home, unemployed - Family History Family History: Reviewed- Non-Contributory - Social History Smoking Status: Current every day smoker Counseled patient to stop smoking for: less than 10 minutes Smoking therapy provided: Yes Alcohol use: No CD- Drugs: No Caffeine use: No Place of Residence: Home <Estrada Dennis - Last Filed: 08/12/21 01:55> Date of Service: 08/12/21 <Adalberto Luis - Last Filed: 08/26/21 16:58> Allergies No Known Allergies Allergy (Unverified 11/25/19 11:54) Home Medications: Atorvastatin Calcium 20 mg PO BEDTIME 11/25/19 Desmopressin (Nonrefrigerated) [Desmopressin 10 Mcg/0.1 ml Spr] 1 spray NS BID 11/25/19 Amiloride HCl [Midamor*] 10 mg PO DAILY #30 tablet 08/16/21 Hydrocodone 5/APAP 325 [[place] 5/325*] 1 tab PO Q12H PRN #30 tab 08/16/21 Metoprolol Tartrate [Lopressor] 25 mg PO BID #60 tab 08/16/21 hydroCHLOROthiazide [Hydrodiuril*] 25 mg PO DAILY #30 tab 08/16/21 Review of Systems 10-point ROS is otherwise unremarkable General: Chills Cardiovascular: Edema Integumentary: Other (Redness right lower extremity swelling bilateral lower extremity), As per HPI <Estrada Dennis - Last Filed: 08/12/21 01:55> Physical Examination - Physical Exam General: Alert, In no apparent distress, Oriented x3, Obese HEENT: Atraumatic, PERRLA, Mucous membr. moist/pink, EOMI, Sclerae nonicteric Neck: Supple, 2+ carotid pulse no bruit, No LAD, Without JVD or thyroid abnormality Respiratory: Clear to auscultation bilaterally, Normal air movement Cardiovascular: Regular rate/rhythm, Normal S1 S2, Edema (3+ pitting edema bilateral lower extremity) Capillary refill: <2 Seconds Gastrointestinal: Normal bowel sounds, No tenderness Musculoskeletal: No tenderness Integumentary: No rashes Neurological: Normal speech, Normal strength at 5/5 x4 extr, Normal tone, Normal affect - Studies Laboratory Data (last 24 hrs) 08/11/21 23:11: PT 13.1 H, INR 1.14 08/11/21 23:11: WBC 7.40, Hgb 13.2, Hct 40.4, Plt Count 225 08/11/21 23:11: Sodium 144, Potassium 3.7, BUN 8, Creatinine 0.77, Glucose 101, Magnesium 2.3, Total Bilirubin 0.4, AST 13 L, ALT 22, Alkaline Phosphatase 73 <Estrada Dennis - Last Filed: 08/12/21 01:55> Assessment and Plan - Plan Assessment: Cellulitis right lower extremity Diabetes insipidus with severe pedal edema COPD Hypertension Hyperlipidemia Plan: Cellulitis right lower extremity: Blood cultures obtained in the emergency department, ultrasound right lower extremity negative for DVT continue broad- spectrum antibiotics cefepime/vancomycin. We will need to also treat significant pedal edema. Diabetes insipidus with severe pedal edema: Patient with severe pedal edema bilaterally 3+ pitting. Patient reports this is worse than it has been before, will continue Lasix 40 mg IV twice daily, nephrology consulted for additional assistance in diuresis given history of diabetes insipidus. Patient reports that she follows with primary care doctor but not endocrinology or nephrology on outpatient basis. Will recommend for follow-up. Will obtain echocardiogram as none is available for review, possible pulmonary edema on chest x-ray. COPD: As needed albuterol, no exacerbation at this time Hypertension: Obtain an continue home medication Hyperlipidemia:Obtain an continue home medication DVT PPX: Lovenox Code status: Full Discharge Plan: Home Plan to discharge in: Greater than 2 days - Advance Directives Does patient have a Living Will: No Does patient have a Durable POA for Healthcare: No - Code Status/Comfort Care Code Status Assessed: Yes (Full code) Critical Care: No Time Spent Managing Pts Care (In Minutes): 55 <Estrada Dennis - Last Filed: 08/12/21 01:55> - Problems (Diagnosis) (1) Lymphedema Status: Acute (2) Anasarca Status: Acute (3) Cellulitis Status: Acute (4) Morbid obesity Status: Acute (5) Diabetes insipidus Status: Acute <Adalberto Luis - Last Filed: 08/26/21 16:58> Date of Service: 08/12/21 Subjective Agree with HPI as mentioned above Review of Systems 10-point ROS is otherwise unremarkable Physical Examination - Vital Signs Reviewed - Physical Exam General: Alert, In no apparent distress, Oriented x3 Respiratory: Clear to auscultation bilaterally, Normal air movement Cardiovascular: Regular rate/rhythm, Normal S1 S2 Gastrointestinal: Normal bowel sounds, Soft and benign, Non-distended, No tenderness Musculoskeletal: Swelling, Erythema, Tenderness Integumentary: Tenderness/swelling, Erythema, Warmth Neurological: Other (No focal deficits) Assessment & Plan - Problems (Diagnosis) (1) Lymphedema Current Visit: Yes Status: Acute (2) Anasarca Current Visit: Yes Status: Acute (3) Cellulitis Current Visit: Yes Status: Acute (4) Morbid obesity Current Visit: Yes Status: Acute (5) Diabetes insipidus Current Visit: Yes Status: Acute - Plan Continue with plan of care as mentioned below: 1. Continue with IV antibiotic 2. Continue with local wound care 3. Nephrology consultation 4. Aggressive diuresing 5. Monitor CBC & renal function closely 6. Strict blood sugar monitoring 7. Pain control 8. Outpatient wound care referral for lymphedema management 9. GI and DVT prophylaxis <Adlaberto Luis - Last Filed: 08/26/21 16:58>
[2021-08-12] MEDS ORDERED: VANCOMYCIN 1 GM/VIAL ONE (02:43)
[2021-08-12] MEDS ORDERED: CEFEPIME 1 GM/VIAL ONE (02:43)
[2021-08-12] MEDS ORDERED: FUROSEMIDE 40 MG/4 ML VIAL ONE (02:44)
[2021-08-12] MEDS ORDERED: NA CHLORIDE 0.9% 250 ML ONE (02:46)
[2021-08-12] MEDS ORDERED: NA CHLORIDE 0.9% 0 ML ONE ×2 (02:46→19:56)
[2021-08-12] MEDS ORDERED: ALBUTEROL INHALER 60 PUFF/8 GM IH PRN (04:17)
[2021-08-12] MEDS ORDERED: ONDANSETRON 4 MG/2 ML VIAL IV PRN (04:17)
[2021-08-12] MEDS ORDERED: VANCOMYCIN/NS 1 gm 1 GM/250 ML BAG IVPB SCH (04:17)
[2021-08-12] MEDS ORDERED: VANCOMYCIN 0.5 GM in NA CHLORIDE 0.9% 100 ML IVPB ONE (05:30)
[2021-08-12] MEDS: HYDROCODONE/APAP 5/325 MG TAB PO PRN ×3 (05:35→22:40)
--- NOTE | 2021-08-12 07:39 | RAD REPORT ---
EXAM DESCRIPTION: Siva Single View08/11/2021 11:15 pm CLINICAL HISTORY: Shortness breath COMPARISON: 2019 FINDINGS: Calcified granuloma left lung. Lungs appear grossly clear. The heart is normal size IMPRESSION: No acute abnormalities displayed. If the patient's symptoms persist PA lateral chest se magalis would recommended
--- NOTE | 2021-08-12 07:42 | RAD REPORT ---
EXAM DESCRIPTION: USExtrem Venous W Compress Bil08/12/2021 12:00 am CLINICAL HISTORY: Leg swelling COMPARISON: none FINDINGS: The common femoral, superficial femoral, popliteal and posterior tibial veins bilaterally are compressible and demonstrate augmentation. Doppler demonstrates good flow. IMPRESSION: No evidence of deep venous thrombosis involving either lower extremity.
[2021-08-12] MEDS ORDERED: INFLUENZA VACCINE (for 6+ mo) 0.5 ML DOSE IMVAC ONE (08:00)
[2021-08-12] MEDS: KCL 20 MEQ/100 mL IVPB 20 MEQ/100 ML BAG IV SCH ×3 (08:00→09:17)
[2021-08-12] MEDS ORDERED: PNEUMOCOCCAL VACCINE 0.5 ML IMVAC ONE (08:00)
[2021-08-12] MEDS: ENOXAPARIN 40 MG/0.4 ML SQ SCH (08:35)
[2021-08-12] MEDS: NICOTINE 14 MG/PAT TD SCH (08:35)
[2021-08-12] MEDS: FUROSEMIDE 40 MG/4 ML VIAL IV SCH ×2 (08:36→16:41)
[2021-08-12] MEDS ORDERED: CEFEPIME 1 GM/VIAL IV SCH (09:00)
[2021-08-12] MEDS ORDERED: POTASSIUM 25 MEQ EFFERV TAB PO ONE (09:18)
--- NOTE | 2021-08-12 12:04 | P.CNS ---
Date of Consult: 08/12/21 Reason for Consult: DI Requesting Physician: Adalberto Luis Primary Care Provider: Schraderveronica moran Chief Complaint: Right lower extremity cellulitis History of Present Illness: 45-year-old female with history of diabetes insipidus, COPD, hypertension, hyperlipidemia presents emergency department for right lower extremity erythema/tenderness as well as bilateral lower extremity edema. Patient reports significant increase in swelling to bilateral lower extremities over the course of last few weeks, noticed redness over the course last few days. Patient with significant erythema/pitting edema/tenderness to the right lower extremity with 3+ pitting edema to both right and left lower extremities but erythema noted only to the right. Labs were significant for normal white blood cell count normal procalcitonin, sodium 144 chloride 108 GFR 81 BNP 243. Clinically patient has significant cellulitis in the right lower extremity with severe 3+ pitting edema to bilateral lower extremities. Will admit with IV antibiotics cefepime, vancomycin. Blood cultures obtained, ultrasound right lower extremity negative for DVT. Patient reports he has had problems with swelling in the past, has been seeing her primary care doctor but not endocrinology or nephrology. Will admit for further evaluation and management. Allergies No Known Allergies Allergy (Unverified 11/25/19 11:54) Home medications list reviewed: Yes Home Medications: Atorvastatin Calcium 20 mg PO BEDTIME 11/25/19 Desmopressin (Nonrefrigerated) [Desmopressin 10 Mcg/0.1 ml Spr] 1 spray NS BID 11/25/19 Losartan/Hydrochlorothiazide [Losartan-Hctz 100-25 mg Tab] 1 each PO BEDTIME 11/25/19 - Past Medical/Surgical History Diabetic: Yes -: Hypertension -: Hyperlipidemia -: Diabetes Insipidus -: COPD -: C section -: Cholecysectomy Psychosocial/ Personal History: Patient lives at home, unemployed - Social History Smoking Status: Current every day smoker Alcohol use: No CD- Drugs: No Caffeine use: No Place of Residence: Home Review of Systems 10-point ROS is otherwise unremarkable Cardiovascular: Edema Integumentary: Lesions Physical Examination Temp Pulse Resp BP Pulse Ox 97.5 F 95 H 18 150/74 H 95 08/12/21 08:00 08/12/21 08:00 08/12/21 08:00 08/12/21 08:00 08/12/21 08:00 General: In no apparent distress, Cooperative HEENT: Atraumatic Neck: Supple Respiratory: Clear to auscultation bilaterally Cardiovascular: Regular rate/rhythm, Edema Gastrointestinal: Soft and benign, Non-distended Musculoskeletal: No clubbing, No contractures Integumentary: No cyanosis, Erythema Neurological: Normal speech Laboratory Data (last 24 hrs) 08/11/21 23:11: PT 13.1 H, INR 1.14 08/11/21 23:11: WBC 7.40, Hgb 13.2, Hct 40.4, Plt Count 225 08/11/21 23:11: Sodium 144, Potassium 3.7, BUN 8, Creatinine 0.77, Glucose 101, Magnesium 2.3, Total Bilirubin 0.4, AST 13 L, ALT 22, Alkaline Phosphatase 73 Imagings Data: EXAM DESCRIPTION: RADChest Single View08/11/2021 11:15 pm CLINICAL HISTORY: Shortness breath COMPARISON: 2019 FINDINGS: Calcified granuloma left lung. Lungs appear grossly clear. The heart is normal size IMPRESSION: No acute abnormalities displayed. If the patient's symptoms persist PA lateral chest series would recommended EXAM DESCRIPTION: USExtrem Venous W Compress Bil08/12/2021 12:00 am CLINICAL HISTORY: Leg swelling COMPARISON: none FINDINGS: The common femoral, superficial femoral, popliteal and posterior tibial veins bilaterally are compressible and demonstrate augmentation. Doppler demonstrates good flow. IMPRESSION: No evidence of deep venous thrombosis involving either lower extremity. Conclusions/Impression: DI -Continue daily HCTZ -Start spironolactone bid -No fluid restriction -Restart nasal desmopressin Hypokalemia -Start spironolactone Chronic LE Lymphedema LE Cellulitis -Continue diuretics HTN -Continue diuretics Thank you kindly for the consultation. Case reviewed with Dr. Luis
[2021-08-12] MEDS: SPIRONOLACTONE 25 MG TABLET PO SCH ×2 (14:44→20:24)
[2021-08-12] MEDS: hydroCHLOROthiazide 25 MG TAB PO SCH (14:44)
[2021-08-12] MEDS: VANCOMYCIN 2 GM in NA CHLORIDE 0.9% 500 ML IVPB SCH (16:42)
--- NOTE | 2021-08-12 16:48 | P.PN ---
Subjective Date of Service: 08/12/21 Significant lymphedema of the lower lateral lower extremity. Aggressive diuresing. Monitor renal function & urine output closely as patient also has DI. Continue with aggressive management and monitor cellulitis as well. Review of Systems 10-point ROS is otherwise unremarkable Physical Examination - Vital Signs Temperature: 97.7 F Blood Pressure: 139/71 Pulse: 85 Respirations: 18 Pulse Ox (%): 98 - Physical Exam General: Alert, In no apparent distress, Oriented x3 Respiratory: Clear to auscultation bilaterally, Normal air movement Cardiovascular: Regular rate/rhythm, Normal S1 S2 Gastrointestinal: Normal bowel sounds, Soft and benign, Non-distended, No tenderness Musculoskeletal: Swelling, Erythema, Tenderness Integumentary: Tenderness/swelling, Erythema, Warmth Neurological: Other (No focal deficits) - Studies Laboratory Data (last 24 hrs) 08/11/21 23:11: PT 13.1 H, INR 1.14 08/11/21 23:11: WBC 7.40, Hgb 13.2, Hct 40.4, Plt Count 225 08/11/21 23:11: Sodium 144, Potassium 3.7, BUN 8, Creatinine 0.77, Glucose 101, Magnesium 2.3, Total Bilirubin 0.4, AST 13 L, ALT 22, Alkaline Phosphatase 73 Medications List Reviewed: Yes Assessment & Plan - Problems (Diagnosis) (1) Lymphedema Current Visit: Yes Status: Acute (2) Anasarca Current Visit: Yes Status: Acute (3) Cellulitis Current Visit: Yes Status: Acute (4) Morbid obesity Current Visit: Yes Status: Acute (5) Diabetes insipidus Current Visit: Yes Status: Acute - Plan 1. Continue with IV antibiotic 2. Continue with local wound care 3. Nephrology consultation 4. Aggressive diuresing 5. Monitor CBC & renal function closely 6. Strict blood sugar monitoring 7. Pain control 8. Outpatient wound care referral for lymphedema management 9. GI and DVT prophylaxis Discharge Plan: Home Plan to discharge in: Greater than 2 days - Advance Directives Does patient have a Living Will: No Does patient have a Durable POA for Healthcare: No - Code Status/Comfort Care Code Status Assessed: Yes Code Status: Full Code Critical Care: No Time Spent Managing PTS Care (In Minutes): 45
[2021-08-12] MEDS: ALBUMIN HUMAN 25% 12.5 GM, FUROSEMIDE 100 MG in NA CHLORIDE 0.9% 40 ML IV SCH ×3 (17:00→22:25)
--- NOTE | 2021-08-12 17:59 | RAD REPORT ---
EXAM DESCRIPTION: US - Lower Extremity Arterial Bilat - 08/12/2021 5:44 pm CLINICAL HISTORY: Leg pain COMPARISON: None FINDINGS: The right common femoral artery and proximal and mid SFA are triphasic. The right distal S FA, popliteal, posterior tibial artery, and dorsalis pedis arteries are monophasic. The left common femoral artery and proximal SFA are triphasic. The left distal SFA, popliteal, and po sterior tibial arteries are monophasic. The dorsalis pedis artery is biphasic . IMPRESSION: Moderate bilateral mid to distal SFA stenoses. Monophasic flow involving nearly all the more distal lower extremity vessels.
[2021-08-12] MEDS ORDERED: NA CHLORIDE 0.9% 100 ML ONE ×2 (20:04→22:33)
[2021-08-12] MEDS: CEFEPIME 1 GM in NA CHLORIDE 0.9% 100 ML IV SCH (20:31)
[2021-08-12] MEDS ORDERED: DESMOPRESSIN NAS SCH (21:00)
[2021-08-12] MEDS ORDERED: FUROSEMIDE 100 MG/10 ML VIAL IV ONE (22:33)
[2021-08-12] MEDS ORDERED: ALBUMIN HUMAN 25% 50 ML IV ONE (22:37)
[2021-08-13] MEDS: ALBUMIN HUMAN 25% 12.5 GM, FUROSEMIDE 100 MG in NA CHLORIDE 0.9% 40 ML IV SCH ×5 (03:00→18:43)
[2021-08-13] MEDS ORDERED: FUROSEMIDE 100 MG/10 ML VIAL IV ONE (03:39)
[2021-08-13] MEDS ORDERED: ALBUMIN HUMAN 25% 50 ML IV ONE (03:39)
[2021-08-13] MEDS ORDERED: NA CHLORIDE 0.9% 100 ML ONE (03:39)
[2021-08-13 04:15] LABS: Absolute Lymphocytes (CBC) 2.1 K/uL (0.7-4.9); Basophils % 1.1 % (0-1.3); Hematocrit 43.1 % (36.0-45.0); Lymphocytes % 20.3 % (15.3-44.8); MPV 8.4 fL (7.6-11.3); RBC Red Blood Cell Count 4.92 M/uL (3.86-4.86)
[2021-08-13] MEDS: VANCOMYCIN 2 GM in NA CHLORIDE 0.9% 500 ML IVPB SCH ×2 (04:50→17:00)
[2021-08-13 06:42] LABS: Blood Morphology Comment NOTED (NOT SEEN); Platelet Estimate ADEQ; White Blood Cell Scan OK (OK)
[2021-08-13] MEDS: SPIRONOLACTONE 25 MG TABLET PO SCH ×2 (08:35→21:00)
[2021-08-13] MEDS: ENOXAPARIN 40 MG/0.4 ML SQ SCH (08:35)
[2021-08-13] MEDS: HYDROCODONE/APAP 5/325 MG TAB PO PRN (08:35)
[2021-08-13] MEDS: NICOTINE 14 MG/PAT TD SCH (08:35)
[2021-08-13] MEDS: hydroCHLOROthiazide 25 MG TAB PO SCH (08:36)
[2021-08-13] MEDS ORDERED: DESMOPRESSIN NAS SCH ×2 (09:00)
[2021-08-13 09:17] LABS: Albumin 3.3 g/dL (3.4-5.0); Bilirubin Total 0.6 mg/dL (0.2-1.0); Phosphorus 4.3 mg/dL (2.5-4.9); Protein, Total 7.2 g/dL (6.4-8.2); Thyroid Stimulating Hormone 2.01 uIU/mL (0.360-3.740); Uric Acid 7.1 mg/dL (2.6-6.0)
[2021-08-13 09:20] LABS: Potassium 2.8 mmol/L (3.5-5.1)
[2021-08-13] MEDS ORDERED: POTASSIUM 25 MEQ EFFERV TAB PO ONE (09:33)
--- NOTE | 2021-08-13 09:46 | P.PN ---
Date of Service: 08/13/21 Subjective Patient continuing with large amount of urine output. Will try to measure more precisely. Renal function is stable. Also check daily weights. Cellulitis looks to be improved. Possible discharge over the next 24-48 hr. Review of Systems 10-point ROS is otherwise unremarkable Physical Examination - Vital Signs Reviewed - Physical Exam General: Alert, In no apparent distress, Oriented x3 Respiratory: Clear to auscultation bilaterally, Normal air movement Cardiovascular: Regular rate/rhythm, Normal S1 S2 Gastrointestinal: Normal bowel sounds, Soft and benign, Non-distended, No tenderness Musculoskeletal: Swelling, Erythema, Tenderness Integumentary: Tenderness/swelling, Erythema, Warmth Neurological: Other (No focal deficits) Assessment & Plan - Problems (Diagnosis) (1) Lymphedema Current Visit: Yes Status: Acute (2) Anasarca Current Visit: Yes Status: Acute (3) Cellulitis Current Visit: Yes Status: Acute (4) Morbid obesity Current Visit: Yes Status: Acute (5) Diabetes insipidus Current Visit: Yes Status: Acute - Plan 1. Continue with IV antibiotic 2. Continue with local wound care 3. Nephrology consultation 4. Patient greater than 10 L of urine output. Renal function stable. Most lik gray combination of diuresing and diabetes insipidus. 5. Monitor CBC & renal function closely 6. Strict blood sugar monitoring 7. Pain control 8. Outpatient wound care referral for lymphedema management-once infection is controlled and she needs wrapping 9. GI and DVT prophylaxis
[2021-08-13] MEDS ORDERED: KCL 20 MEQ/100 mL IVPB 20 MEQ/100 ML BAG IV SCH ×2 (10:00→15:00)
[2021-08-13] MEDS: POTASSIUM 25 MEQ EFFERV TAB PO SCH ×2 (15:12→20:30)
--- NOTE | 2021-08-13 18:13 | EKG ---
Test Date: 2021-08-12 Test Time: 00:33:02 Bar Porter: MELISSA MEASUREMENT RESULTS: Intervals: Rate: 84 ID: [id number] QRSD: 66 QT: 346 QTc: 408 [place]: P: 57 ID: [id number] QRS: -17 T: 21 INTERPRETIVE STATEMENTS: Normal sinus rhythm Anteroseptal infarct, age undetermined Abnormal ECG Compared to ECG 11/25/2019 09:04:00 Myocardial infarct finding now present Electronically Signed On 08-13-21 18:06:21 CDT by Jayden Tirado
[2021-08-13] MEDS: POTASSIUM CL SA 10 MEQ TAB PO SCH ×2 (18:30→21:06)
--- NOTE | 2021-08-13 20:19 | P.PN ---
Date of Service: 08/13/21 Vital Signs Temp Pulse Resp BP Pulse Ox 99.5 F 108 H 20 128/74 92 08/13/21 16:00 08/13/21 16:00 08/13/21 16:00 08/13/21 16:00 08/13/21 16:00 Medications Hydrocodone Bitart/Acetaminophen (Hydrocodone/Apap 5/325 Mg Tab) 1 tab PO Q6H PRN PRN Reason: Pain scale 5-7 (Moderate) Last Admin: 08/13/21 08:35 Dose: 1 tab Documented by: Albuterol Sulfate (Albuterol Inhaler 60 Puff/8 Gm) 2 puff IH Q6H PRN PRN Reason: SHORTNESS OF BREATH Emollient Gel (Medihoney 44 Ml Topical Tube) 1 appl TOP DAILY [facility] Enoxaparin Sodium (Enoxaparin 40 Mg/0.4 Ml) 40 mg SQ DAILY [facility] Last Admin: 08/13/21 08:35 Dose: 40 mg Documented by: Home Med (Desmopressin Nasal [place]) 1 ea MARIA ALEJANDRA Q48H [facility] Last Admin: 08/13/21 08:53 Dose: Not Given Documented by: Hydrochlorothiazide (Hydrochlorothiazide 25 Mg Tab) 25 mg PO DAILY [facility] Last Admin: 08/13/21 08:36 Dose: 25 mg Documented by: Cefepime HCl 1 gm/ Sodium (Chloride) 100 mls @ 200 mls/hr IV Q24H [facility] Last Admin: 08/12/21 20:31 Dose: 100 mls Documented by: Vancomycin HCl 2 gm/ Sodium (Chloride) 540 mls @ 270 mls/hr IVPB Q12H [facility] Albumin Human 12.5 gm/Furosemide 100 mg/ Sodium Chloride 100 mls @ 20 mls/hr IV Q5H [facility] Last Admin: 08/13/21 18:43 Dose: 100 mls Documented by: Nicotine (Nicotine 14 Mg/Pat) 14 mg TD DAILY [facility] Last Admin: 08/13/21 08:35 Dose: 14 mg Documented by: Ondansetron HCl (Ondansetron 4 Mg/2 Ml Vial) 4 mg IV Q6HP PRN PRN Reason: NAUSEA / VOMITING Last Admin: 08/13/21 12:39 Dose: 4 mg Documented by: Potassium Bicarbonate (Potassium 25 Meq Efferv Tab) 25 meq PO BID [facility] Last Admin: 08/13/21 15:12 Dose: 25 meq Documented by: Potassium Chloride (Potassium Cl Sa 10 Meq Tab) 40 meq PO Q3H [facility] Stop: 08/13/21 21:31 Last Admin: 08/13/21 18:30 Dose: 40 meq Documented by: Sodium Chloride (Flush Normal Saline 10 Ml) 10 ml IV BID [facility] Last Admin: 08/13/21 08:36 Dose: 10 ml Documented by: Spironolactone (Spironolactone 25 Mg Tablet) 50 mg PO BID [facility] Microbiology Results 08/11/21 23:17 Blood - Blood Aerobic Blood Culture - Preliminary No growth in 24 hours. 08/11/21 23:17 Blood - Blood Anaerobic Blood Culture - Preliminary No growth in 24 hours. Assessment/ Plan: Nephrology Progress Note Doing well No chest pain or dyspnea No acute events overnight Vitals, medications blood work and imaging reviewed in the chart General: In no apparent distress, Cooperative HEENT: Atraumatic Neck: Supple Respiratory: Clear to auscultation bilaterally Cardiovascular: Regular rate/rhythm, Edema Gastrointestinal: Soft and benign, Non-distended Musculoskeletal: No clubbing, No contractures Integumentary: No cyanosis, Erythema Neurological: Normal speech Laboratory Data (last 24 hrs) 08/11/21 23:11: PT 13.1 H, INR 1.14 08/11/21 23:11: WBC 7.40, Hgb 13.2, Hct 40.4, Plt Count 225 08/11/21 23:11: Sodium 144, Potassium 3.7, BUN 8, Creatinine 0.77, Glucose 101, Magnesium 2.3, Total Bilirubin 0.4, AST 13 L, ALT 22, Alkaline Phosphatase 73 Imagings Data: EXAM DESCRIPTION: RADChest Single View08/11/2021 11:15 pm CLINICAL HISTORY: Shortness breath COMPARISON: 2019 FINDINGS: Calcified granuloma left lung. Lungs appear grossly clear. The heart is normal size IMPRESSION: No acute abnormalities displayed. If the patient's symptoms persist PA lateral chest series would recommended EXAM DESCRIPTION: USExtrem Venous W Compress Bil08/12/2021 12:00 am CLINICAL HISTORY: Leg swelling COMPARISON: none FINDINGS: The common femoral, superficial femoral, popliteal and posterior tibial veins bilaterally are compressible and demonstrate augmentation. Doppler demonstrates good flow. IMPRESSION: No evidence of deep venous thrombosis involving either lower extremity. Conclusions/Impression: DI -Continue daily HCTZ -Increase spironolactone bid -No fluid restriction -Continue nasal desmopressin Hypokalemia -Increase spironolactone -Replete with oral potassium Chronic LE Lymphedema LE Cellulitis -Continue diuretics -Continue Abx HTN -Continue diuretics
[2021-08-13] MEDS: CEFEPIME 1 GM in NA CHLORIDE 0.9% 100 ML IV SCH (20:26)
[2021-08-14] MEDS: ALBUMIN HUMAN 25% 12.5 GM, FUROSEMIDE 100 MG in NA CHLORIDE 0.9% 40 ML IV SCH ×4 (00:39→16:40)
[2021-08-14 03:54] LABS: Absolute Lymphocytes (CBC) 1.7 K/uL (0.7-4.9); Basophils % 0.6 % (0-1.3); Hematocrit 40.1 % (36.0-45.0); Lymphocytes % 23.1 % (15.3-44.8); MPV 8.1 fL (7.6-11.3); RBC Red Blood Cell Count 4.63 M/uL (3.86-4.86)
[2021-08-14 04:14] LABS: Albumin 3.9 g/dL (3.4-5.0); Bilirubin Total 0.7 mg/dL (0.2-1.0); Potassium 3.1 mmol/L (3.5-5.1); Protein, Total 7.8 g/dL (6.4-8.2)
[2021-08-14] MEDS: ENOXAPARIN 40 MG/0.4 ML SQ SCH (08:14)
[2021-08-14] MEDS: hydroCHLOROthiazide 25 MG TAB PO SCH (08:14)
[2021-08-14] MEDS: POTASSIUM 25 MEQ EFFERV TAB PO SCH (08:14)
[2021-08-14] MEDS: SPIRONOLACTONE 25 MG TABLET PO SCH ×2 (08:14→20:58)
[2021-08-14] MEDS: NICOTINE 14 MG/PAT TD SCH (08:15)
[2021-08-14] MEDS: MEDIHONEY 44 ML TOPICAL TUBE TOP SCH (08:16)
[2021-08-14] MEDS ORDERED: POTASSIUM CL SA 10 MEQ TAB PO ONE ×2 (09:00→21:00)
--- NOTE | 2021-08-14 09:31 | P.PN ---
Date of Service: 08/14/21 Vital Signs Temp Pulse Resp BP Pulse Ox 98.3 F 103 H 18 115/54 L 95 08/14/21 08:00 08/14/21 08:16 08/14/21 08:00 08/14/21 08:00 08/14/21 08:16 Medications Hydrocodone Bitart/Acetaminophen (Hydrocodone/Apap 5/325 Mg Tab) 1 tab PO Q6H PRN PRN Reason: Pain scale 5-7 (Moderate) Last Admin: 08/13/21 08:35 Dose: 1 tab Documented by: Albuterol Sulfate (Albuterol Inhaler 60 Puff/8 Gm) 2 puff IH Q6H PRN PRN Reason: SHORTNESS OF BREATH Emollient Gel (Medihoney 44 Ml Topical Tube) 1 appl TOP DAILY [facility] Last Admin: 08/14/21 08:16 Dose: 1 applic Documented by: Enoxaparin Sodium (Enoxaparin 40 Mg/0.4 Ml) 40 mg SQ DAILY [facility] Last Admin: 08/14/21 08:14 Dose: 40 mg Documented by: Hydrochlorothiazide (Hydrochlorothiazide 25 Mg Tab) 25 mg PO DAILY [facility] Last Admin: 08/14/21 08:14 Dose: 25 mg Documented by: Cefepime HCl 1 gm/ Sodium (Chloride) 100 mls @ 200 mls/hr IV Q24H [facility] Last Admin: 08/13/21 20:26 Dose: 100 mls Documented by: Albumin Human 12.5 gm/Furosemide 100 mg/ Sodium Chloride 100 mls @ 20 mls/hr IV Q5H [facility] Last Admin: 08/14/21 06:05 Dose: 100 mls Documented by: Vancomycin HCl 2 gm/ Sodium (Chloride) 540 mls @ 270 mls/hr IVPB Q18H [facility] Nicotine (Nicotine 14 Mg/Pat) 14 mg TD DAILY [facility] Last Admin: 08/14/21 08:15 Dose: 14 mg Documented by: Ondansetron HCl (Ondansetron 4 Mg/2 Ml Vial) 4 mg IV Q6HP PRN PRN Reason: NAUSEA / VOMITING Last Admin: 08/13/21 12:39 Dose: 4 mg Documented by: Potassium Chloride (Potassium Cl Sa 10 Meq Tab) 40 meq PO Q3H [facility] Stop: 08/14/21 19:01 Sodium Chloride (Flush Normal Saline 10 Ml) 10 ml IV BID [facility] Last Admin: 08/14/21 08:17 Dose: 10 ml Documented by: Spironolactone (Spironolactone 25 Mg Tablet) 50 mg PO BID [facility] Last Admin: 08/14/21 08:14 Dose: 50 mg Documented by: Microbiology Results 08/11/21 23:17 Blood - Blood Aerobic Blood Culture - Preliminary No growth in 24 hours. 08/11/21 23:17 Blood - Blood Anaerobic Blood Culture - Preliminary No growth in 24 hours. Assessment/ Plan: Nephrology Progress Note Doing well. Good urine output. Persistent edema of the RLE. No chest pain or dyspnea No acute events overnight Vitals, medications blood work and imaging reviewed in the chart General: In no apparent distress, Cooperative HEENT: Atraumatic Neck: Supple Respiratory: Clear to auscultation bilaterally Cardiovascular: Regular rate/rhythm, Edema Gastrointestinal: Soft and benign, Non-distended Musculoskeletal: No clubbing, No contractures Integumentary: No cyanosis, Erythema Neurological: Normal speech Laboratory Data (last 24 hrs) 08/11/21 23:11: PT 13.1 H, INR 1.14 08/11/21 23:11: WBC 7.40, Hgb 13.2, Hct 40.4, Plt Count 225 08/11/21 23:11: Sodium 144, Potassium 3.7, BUN 8, Creatinine 0.77, Glucose 101, Magnesium 2.3, Total Bilirubin 0.4, AST 13 L, ALT 22, Alkaline Phosphatase 73 Imagings Data: EXAM DESCRIPTION: [facility] Single View08/11/2021 11:15 pm CLINICAL HISTORY: Shortness breath COMPARISON: 2019 FINDINGS: Calcified granuloma left lung. Lungs appear grossly clear. The heart is normal size IMPRESSION: No acute abnormalities displayed. If the patient's symptoms persist PA lateral chest series would recommended EXAM DESCRIPTION: USExtrem Venous W Compress Bil08/12/2021 12:00 am CLINICAL HISTORY: Leg swelling COMPARISON: none FINDINGS: The common femoral, superficial femoral, popliteal and posterior tibial veins bilaterally are compressible and demonstrate augmentation. Doppler demonstrates good flow. IMPRESSION: No evidence of deep venous thrombosis involving either lower extremity. Conclusions/Impression: DI -Continue daily HCTZ -Continue spironolactone bid -No fluid restriction -Discontinue nasal desmopressin Hypokalemia -Continue spironolactone -Aggressive oral KCl repletion today Chronic LE Lymphedema LE Cellulitis -Continue diuretics -Continue Abx HTN -Continue diuretics
[2021-08-14] MEDS: POTASSIUM CL SA 10 MEQ TAB PO SCH ×4 (10:51→19:00)
[2021-08-14] MEDS ORDERED: HYDROCORTISONE SUC 100 MG INJ IV ONE (11:27)
[2021-08-14 12:42] LABS: Magnesium 2.1 mg/dL (1.8-2.4); Potassium 3.1 mmol/L (3.5-5.1)
[2021-08-14] MEDS ORDERED: VANCOMYCIN IVPB SCH (17:00)
[2021-08-14] MEDS ORDERED: NA CHLORIDE 0.9% IVPB SCH (17:00)
[2021-08-14 18:31] LABS: Potassium 3.1 mmol/L (3.5-5.1)
[2021-08-14] MEDS: VANCOMYCIN IVPB SCH (18:47)
[2021-08-14] MEDS: NA CHLORIDE 0.9% IVPB SCH (18:47)
[2021-08-14] MEDS: CEFEPIME 1 GM in NA CHLORIDE 0.9% 100 ML IV SCH (23:37)
[2021-08-15] MEDS: ALBUMIN HUMAN 25% 12.5 GM, FUROSEMIDE 100 MG in NA CHLORIDE 0.9% 40 ML IV SCH ×3 (00:26→05:29)
[2021-08-15 04:01] LABS: Absolute Lymphocytes (CBC) 2.2 K/uL (0.7-4.9); Basophils % 0.7 % (0-1.3); Hematocrit 38.2 % (36.0-45.0); Lymphocytes % 23.8 % (15.3-44.8); MPV 7.9 fL (7.6-11.3); RBC Red Blood Cell Count 4.43 M/uL (3.86-4.86)
[2021-08-15 04:38] LABS: Albumin 4.1 g/dL (3.4-5.0); Bilirubin Total 0.7 mg/dL (0.2-1.0); Protein, Total 7.9 g/dL (6.4-8.2); Uric Acid 8.7 mg/dL (2.6-6.0)
[2021-08-15 04:44] LABS: Potassium 2.8 mmol/L (3.5-5.1)
[2021-08-15] MEDS ORDERED: POTASSIUM CL SA 10 MEQ TAB PO ONE ×3 (04:51→08:44)
[2021-08-15] MEDS ORDERED: POTASSIUM CL SA 10 MEQ TAB PO SCH (05:00)
--- NOTE | 2021-08-15 08:02 | P.PN ---
Date of Service: 08/14/21 Subjective Patient is doing much better. Edema is improved. Cellulitis is much better. Anticipate discharge over the next 24-48 hr. Review of Systems 10-point ROS is otherwise unremarkable Physical Examination - Vital Signs Reviewed - Physical Exam General: Alert, In no apparent distress, Oriented x3 Respiratory: Clear to auscultation bilaterally, Normal air movement Cardiovascular: Regular rate/rhythm, Normal S1 S2 Gastrointestinal: Normal bowel sounds, Soft and benign, Non-distended, No tenderness Musculoskeletal: Swelling, Erythema, Tenderness Integumentary: Tenderness/swelling, Erythema, Warmth Neurological: Other (No focal deficits) Assessment & Plan - Problems (Diagnosis) (1) Lymphedema Current Visit: Yes Status: Acute (2) Anasarca Current Visit: Yes Status: Acute (3) Cellulitis Current Visit: Yes Status: Acute (4) Morbid obesity Current Visit: Yes Status: Acute (5) Diabetes insipidus Current Visit: Yes Status: Acute - Plan 1. Continue with IV antibiotic 2. Continue with local wound care 3. Nephrology consultation 4. Patient greater than 10 L of urine output. Renal function stable. Most likely combination of diuresing and diabetes insipidus. 5. Monitor CBC & renal function closely 6. Strict blood sugar monitoring 7. Pain control 8. Outpatient wound care referral for lymphedema management-once infection is controlled and she needs wrapping 9. GI and DVT prophylaxis
[2021-08-15] MEDS: ENOXAPARIN 40 MG/0.4 ML SQ SCH (08:24)
[2021-08-15] MEDS: hydroCHLOROthiazide 25 MG TAB PO SCH (08:25)
[2021-08-15] MEDS: NICOTINE 14 MG/PAT TD SCH (08:25)
[2021-08-15] MEDS: SPIRONOLACTONE 25 MG TABLET PO SCH ×2 (08:25→20:50)
[2021-08-15] MEDS: MEDIHONEY 44 ML TOPICAL TUBE TOP SCH (08:25)
[2021-08-15] MEDS: POTASSIUM CL SA 10 MEQ TAB PO SCH ×5 (11:08→18:30)
[2021-08-15] MEDS: VANCOMYCIN IVPB SCH (11:08)
[2021-08-15] MEDS: NA CHLORIDE 0.9% IVPB SCH (11:08)
[2021-08-15] MEDS: AMILORIDE HCL 5 MG TABLET PO SCH ×2 (11:09→20:49)
[2021-08-15] MEDS ORDERED: VANCOMYCIN 1 GM/VIAL ONE (11:24)
--- NOTE | 2021-08-15 20:27 | P.PN ---
Date of Service: 08/15/21 Vital Signs Temp Pulse Resp BP Pulse Ox 98.3 F 90 20 140/73 95 08/15/21 16:00 08/15/21 16:00 08/15/21 16:00 08/15/21 16:00 08/15/21 16:00 Medications Hydrocodone Bitart/Acetaminophen (Hydrocodone/Apap 5/325 Mg Tab) 1 tab PO Q6H PRN PRN Reason: Pain scale 5-7 (Moderate) Last Admin: 08/13/21 08:35 Dose: 1 tab Documented by: Albuterol Sulfate (Albuterol Inhaler 60 Puff/8 Gm) 2 puff IH Q6H PRN PRN Reason: SHORTNESS OF BREATH Amiloride HCl (Amiloride Hcl 5 Mg Tablet) 10 mg PO BID [facility] Last Admin: 08/15/21 11:09 Dose: 10 mg Documented by: Emollient Gel (Medihoney 44 Ml Topical Tube) 1 appl TOP DAILY [facility] Last Admin: 08/15/21 08:25 Dose: 1 applic Documented by: Enoxaparin Sodium (Enoxaparin 40 Mg/0.4 Ml) 40 mg SQ DAILY [facility] Last Admin: 08/15/21 08:24 Dose: 40 mg Documented by: Hydrochlorothiazide (Hydrochlorothiazide 25 Mg Tab) 25 mg PO DAILY [facility] Last Admin: 08/15/21 08:25 Dose: 25 mg Documented by: Cefepime HCl 1 gm/ Sodium (Chloride) 100 mls @ 200 mls/hr IV Q24H [facility] Last Admin: 08/14/21 23:37 Dose: 100 mls Documented by: Vancomycin HCl 2 gm/ Sodium (Chloride) 540 mls @ 270 mls/hr IVPB Q18H [facility] Last Admin: 08/15/21 11:08 Dose: 540 mls Documented by: Nicotine (Nicotine 14 Mg/Pat) 14 mg TD DAILY [facility] Last Admin: 08/15/21 08:25 Dose: 14 mg Documented by: Ondansetron HCl (Ondansetron 4 Mg/2 Ml Vial) 4 mg IV Q6HP PRN PRN Reason: NAUSEA / VOMITING Last Admin: 08/13/21 12:39 Dose: 4 mg Documented by: Sodium Chloride (Flush Normal Saline 10 Ml) 10 ml IV BID [facility] Last Admin: 08/15/21 08:26 Dose: 10 ml Documented by: Spironolactone (Spironolactone 25 Mg Tablet) 50 mg PO BID [facility] Last Admin: 08/15/21 08:25 Dose: 50 mg Documented by: Microbiology Results 08/11/21 23:17 Blood - Blood Aerobic Blood Culture - Preliminary No growth in 24 hours. 08/11/21 23:17 Blood - Blood Anaerobic Blood Culture - Preliminary No growth in 24 hours. Assessment/ Plan: Nephrology Progress Note Doing well. Good urine output. Persistent edema. No chest pain or dyspnea No acute events overnight Vitals, medications blood work and imaging reviewed in the chart General: In no apparent distress, Cooperative HEENT: Atraumatic Neck: Supple Respiratory: Clear to auscultation bilaterally Cardiovascular: Regular rate/rhythm, Edema Gastrointestinal: Soft and benign, Non-distended Musculoskeletal: No clubbing, No contractures Integumentary: No cyanosis, Erythema Neurological: Normal speech Laboratory Data (last 24 hrs) 08/11/21 23:11: PT 13.1 H, INR 1.14 08/11/21 23:11: WBC 7.40, Hgb 13.2, Hct 40.4, Plt Count 225 08/11/21 23:11: Sodium 144, Potassium 3.7, BUN 8, Creatinine 0.77, Glucose 101, Magnesium 2.3, Total Bilirubin 0.4, AST 13 L, ALT 22, Alkaline Phosphatase 73 Imagings Data: EXAM DESCRIPTION: RADChest Single View08/11/2021 11:15 pm CLINICAL HISTORY: Shortness breath COMPARISON: 2019 FINDINGS: Calcified granuloma left lung. Lungs appear grossly clear. The heart is normal size IMPRESSION: No acute abnormalities displayed. If the patient's symptoms pe rsist PA lateral chest series would recommended EXAM DESCRIPTION: USExtrem Venous W Compress Bil08/12/2021 12:00 am CLINICAL HISTORY: Leg swelling COMPARISON: none FINDINGS: The common femoral, superficial femoral, popliteal and posterior tibial veins bilaterally are compressible and demonstrate augmentation. Doppler demonstrates good flow. IMPRESSION: No evidence of deep venous thrombosis involving either lower extremity. Conclusions/Impression: DI -Continue daily HCTZ -Continue spironolactone bid -Start Amiloride 10mg BID -No fluid restriction -Hold nasal desmopressin Hypokalemia -Continue spironolactone -Start Amiloride 10mg BID -Aggressive oral KCl repletion today Chronic LE Lymphedema LE Cellulitis -Continue diuretics -Continue Abx HTN -Continue diuretics Case reviewed with Dr. Luis
[2021-08-15] MEDS: HYDROCODONE/APAP 5/325 MG TAB PO PRN (20:48)
[2021-08-15] MEDS: CEFEPIME 1 GM in NA CHLORIDE 0.9% 100 ML IV SCH (20:51)
[2021-08-16 05:03] LABS: Absolute Lymphocytes (CBC) 2.3 K/uL (0.7-4.9); Basophils % 0.9 % (0-1.3); Hematocrit 42.3 % (36.0-45.0); Lymphocytes % 23.7 % (15.3-44.8); MPV 7.9 fL (7.6-11.3); RBC Red Blood Cell Count 4.86 M/uL (3.86-4.86)
[2021-08-16 05:15] LABS: Albumin 4.2 g/dL (3.4-5.0); Bilirubin Total 0.5 mg/dL (0.2-1.0); Phosphorus 3.7 mg/dL (2.5-4.9); Potassium 4.6 mmol/L (3.5-5.1); Protein, Total 8.2 g/dL (6.4-8.2)
[2021-08-16] MEDS: VANCOMYCIN IVPB SCH (05:45)
[2021-08-16] MEDS: NA CHLORIDE 0.9% IVPB SCH (05:45)
[2021-08-16 06:53] VITALS: BMI 55.7
[2021-08-16] MEDS: SPIRONOLACTONE 25 MG TABLET PO SCH (08:02)
[2021-08-16] MEDS: NICOTINE 14 MG/PAT TD SCH (08:02)
[2021-08-16] MEDS: ENOXAPARIN 40 MG/0.4 ML SQ SCH (08:02)
[2021-08-16] MEDS: AMILORIDE HCL 5 MG TABLET PO SCH (08:02)
[2021-08-16] MEDS: hydroCHLOROthiazide 25 MG TAB PO SCH (08:02)
[2021-08-16] MEDS: MEDIHONEY 44 ML TOPICAL TUBE TOP SCH (08:03)
[2021-08-16 08:12] VITALS: O2SAT 98
[2021-08-16 13:14] VITALS: BP 135/91; TEMP 98
--- NOTE | 2021-08-16 20:21 | P.PN ---
Date of Service: 08/16/21 Vital Signs Temp Pulse Resp BP Pulse Ox 98 F 99 H 20 135/91 H 98 08/16/21 12:00 08/16/21 12:00 08/16/21 12:00 08/16/21 12:00 08/16/21 12:00 Microbiology Results 08/11/21 23:17 Blood - Blood Aerobic Blood Culture - Preliminary No growth in 24 hours. 08/11/21 23:17 Blood - Blood Anaerobic Blood Culture - Preliminary No growth in 24 hours. Assessment/ Plan: Nephrology Progress Note Doing well. Good urine output. Improving edema. No chest pain or dyspnea No acute events overnight Vitals, medications blood work and imaging reviewed in the chart General: In no apparent distress, Cooperative HEENT: Atraumatic Neck: Supple Respiratory: Clear to auscultation bilaterally Cardiovascular: Regular rate/rhythm, Edema Gastrointestinal: Soft and benign, Non-distended Musculoskeletal: No clubbing, No contractures Integumentary: No cyanosis, Erythema Neurological: Normal speech Laboratory Data (last 24 hrs) 08/11/21 23:11: PT 13.1 H, INR 1.14 08/11/21 23:11: WBC 7.40, Hgb 13.2, Hct 40.4, Plt Count 225 08/11/21 23:11: Sodium 144, Potassium 3.7, BUN 8, Creatinine 0.77, Glucose 101, Magnesium 2.3, Total Bilirubin 0.4, AST 13 L, ALT 22, Alkaline Phosphatase 73 Imagings Data: EXAM DESCRIPTION: [facility]08/11/2021 11:15 pm CLINICAL HISTORY: Shortness breath COMPARISON: 2019 FINDINGS: Calcified granuloma left lung. Lungs appear grossly clear. The heart is normal size IMPRESSION: No acute abnormalities displayed. If the patient's symptoms persist PA lateral chest series would recommended EXAM DESCRIPTION: USExtrem Venous W Compress Bil08/12/2021 12:00 am CLINICAL HISTORY: Leg swelling COMPARISON: none FINDINGS: The common femoral, superficial femoral, popliteal and posterior tibial veins bilaterally are compressible and demonstrate augmentation. Doppler demonstrates good flow. IMPRESSION: No evidence of deep venous thrombosis involving either lower extremity. Conclusions/Impression: DI -Continue daily HCTZ -Discontinue spironolactone bid -Reduce Amiloride 10mg Daily -No fluid restriction -Restart nasal desmopressin as needed Hypokalemia -Discontinue spironolactone -Reduce Amiloride 10mg Daily -Hold potassium replacement Chronic LE Lymphedema LE Cellulitis -Continue diuretics -Continue Abx HTN -Continue diuretics Case reviewed with Dr. Luis
[2021-08-17] MEDS ORDERED: AMILORIDE HCL 5 MG TABLET PO SCH (09:00)
--- NOTE | 2021-08-26 17:00 | P.PN ---
Date of Service: 08/15/21 Subjective Patient's cellulitis is improved. Edema of the lower extremity is improved. Patient clinical symptoms continued to get much better. Review of Systems 10-point ROS is otherwise unremarkable Physical Examination - Vital Signs Reviewed - Physical Exam General: Alert, In no apparent distress, Oriented x3 Respiratory: Clear to auscultation bilaterally, Normal air movement Cardiovascular: Regular rate/rhythm, Normal S1 S2 Gastrointestinal: Normal bowel sounds, Soft and benign, Non-distended, No te nderness Musculoskeletal: Swelling, Erythema, Tenderness Integumentary: Tenderness/swelling, Erythema, Warmth Neurological: Other (No focal deficits) Assessment & Plan - Problems (Diagnosis) (1) Lymphedema Current Visit: Yes Status: Acute (2) Anasarca Current Visit: Yes Status: Acute (3) Cellulitis Current Visit: Yes Status: Acute (4) Morbid obesity Current Visit: Yes Status: Acute (5) Diabetes insipidus Current Visit: Yes Status: Acute - Plan Continue with plan of care as mentioned below: 1. Continue with IV antibiotic 2. Continue with local wound care 3. Nephrology consultation 4. Patient greater than 10 L of urine output. Renal function stable. Most likely combination of diuresing and diabetes insipidus. 5. Monitor CBC & renal function closely 6. Strict blood sugar monitoring 7. Pain control 8. Outpatient wound care referral for lymphedema management-once infection is controlled and she needs wrapping 9. Outpatient follow-up for diabetes insipidus 10. GI and DVT prophylaxis
--- NOTE | 2021-08-26 17:01 | P.DS ---
Discharge Date: 08/16/21 Primary Care Provider: Raciel moran Disposition: ROUTINE DISCHARGE Discharge Condition: GOOD Reason for Admission: Right lower extremity cellulitis - Problems (1) Lymphedema Status: Acute (2) Anasarca Status: Acute (3) Cellulitis Status: Acute (4) Morbid obesity Status: Acute (5) Diabetes insipidus Status: Acute Brief History of Present Illness: 45-year-old female with history of diabetes insipidus, COPD, hypertension, hyperlipidemia presents emergency department for right lower extremity erythema/tenderness as well as bilateral lower extremity edema. Patient reports significant increase in swelling to bilateral lower extremities over the course of last few weeks, noticed redness over the course last few days. Patient with significant erythema/pitting edema/tenderness to the right lower extremity with 3+ pitting edema to both right and left lower extremities but erythema noted only to the right. Labs were significant for normal white blood cell count normal procalcitonin, sodium 144 chloride 108 GFR 81 BNP 243. Clinically patient has significant cellulitis in the right lower extremity with severe 3+ pitting edema to bilateral lower extremities. Will admit with IV antibiotics cefepime, vancomycin. Blood cultures obtained, ultrasound right lower extremity negative for DVT. Patient reports he has had problems with swelling in the past, has been seeing her primary care doctor but not endocrinology or nephrology. Will admit for further evaluation and management. Hospital Course: Patient was diuresed aggressively. Patient has had over a 20 lb weight loss as well because of the extensive fluid removed. We continue with the antibiotic therapy. Patient is clinically doing much better. Spoke with Nephrology and they will do diabetes insipidus workup as an outpatient as well. Patient is stable for discharge home. Vital Signs/Physical Exam: Temp Pulse Resp BP Pulse Ox 98 F 99 H 20 135/91 H 98 08/16/21 12:00 08/16/21 12:00 08/16/21 12:00 08/16/21 12:00 08/16/21 12:00 General: Alert, In no apparent distress, Oriented x3 Laboratory Data at Discharge: WBC 9.50 K/uL (4.3-10.9) 08/16/21 04:24 Hgb 14.0 g/dL (12.0-15.0) 08/16/21 04:24 Hct 42.3 % (36.0-45.0) 08/16/21 04:24 Plt Count 257 K/uL (152-406) 08/16/21 04:24 PT 13.1 SECONDS (9.5-12.5) H 08/11/21 23:11 INR 1.14 08/11/21 23:11 Sodium 139 mmol/L (136-145) 08/16/21 04:24 Potassium 4.6 mmol/L (3.5-5.1) 08/16/21 04:24 BUN 16 mg/dL (7-18) 08/16/21 04:24 Creatinine 0.74 mg/dL (0.55-1.3) 08/16/21 04:24 Glucose 122 mg/dL (74-106) H 08/16/21 04:24 Uric Acid 8.0 mg/dL (2.6-6.0) H 08/16/21 04:24 Phosphorus 3.7 mg/dL (2.5-4.9) 08/16/21 04:24 Magnesium 2.1 mg/dL (1.8-2.4) 08/14/21 12:14 Total Bilirubin 0.5 mg/dL (0.2-1.0) 08/16/21 04:24 AST 17 U/L (15-37) 08/16/21 04:24 ALT 27 U/L (12-78) 08/16/21 04:24 Alkaline Phosphatase 68 U/L (45-117) 08/16/21 04:24 Triglycerides 111 mg/dL (<150) 08/13/21 08:38 Cholesterol 164 mg/dL (<200) 08/13/21 08:38 HDL Cholesterol 37 mg/dL (40-60) L 08/13/21 08:38 Cholesterol/HDL Ratio 4.43 08/13/21 08:38 Home Medications: RX: Atorvastatin Calcium 20 mg PO BEDTIME 11/25/19 RX: Desmopressin (Nonrefrigerated) [Desmopressin 10 Mcg/0.1 ml Spr] 1 spray NS BID 11/25/19 Metoprolol Tartrate [Lopressor] 25 mg PO BID #60 tab 08/16/21 RX: Amiloride HCl [Midamor*] 10 mg PO DAILY #30 tablet 08/16/21 RX: Hydrocodone 5/APAP 325 [[place] 5/325*] 1 tab PO Q12H PRN #30 tab 08/16/21 RX: hydroCHLOROthiazide [Hydrodiuril*] 25 mg PO DAILY #30 tab 08/16/21 New Medications: RX: hydroCHLOROthiazide [Hydrodiuril*] 25 mg PO DAILY #30 tab Metoprolol Tartrate [Lopressor] 25 mg PO BID #60 tab RX: Amiloride HCl [Midamor*] 10 mg PO DAILY #30 tablet RX: Hydrocodone 5/APAP 325 [[place] 5/325*] 1 tab PO Q12H PRN #30 tab PRN Reason: Pain Scale 5-7 (Moderate) Physician Discharge Instructions: OK TO DC IV AND DC HOME FOLLOW-UP WITH PRIMARY CARE PROVIDER IN 1-2 WEEKS FOLLOW-UP WITH Nephrology IN 1-2 WEEKS RETURN TO THE ER IF symptoms worsen CALL or TEXT DR. STEPHENSON AT [phone] IF ANY QUESTIONS REGARDING HOSPITAL STAY. PLEASE CALL THE FLOOR AT [phone] IF ANY MEDICATION OR NURSING QUESTIONS. Diet: AHA Activity: Fall precautions Followup: NONE,NONE [Primary Care Provider] - Time spent managing pt's care (in minutes): 35
== END 2021-08-16 14:30 | disposition home or self-care (01) | DRG 603 ==
LOC: ER 22:07 → ERHOLD 08-12 01:48 → 4TH 08-12 04:41
PROVIDERS: ADMIT Hospitalist; ATTEND Hospitalist
DX: L03.115 Cellulitis of right lower limb (principal); Z68.43 Body mass index [BMI] 50.0-59.9, adult; E23.2 Diabetes insipidus; I89.0 Lymphedema, not elsewhere classified; R60.1 Generalized edema; E66.01 Morbid (severe) obesity due to excess calories; J44.9 Chronic obstructive pulmonary disease, unspecified; I10 Essential (primary) hypertension; E78.5 Hyperlipidemia, unspecified; E87.6 Hypokalemia; Z20.822 Contact with and (suspected) exposure to COVID-19
CPT/HCPCS: 36415; 71045; 80048; 80053; 80061; 80076; 80202; 81003; 81015; 81025; 83605; 83735; 83880; 84100; 84132; 84145; 84439; 84443; 84484; 84550; 85025; 85610; 87040; 93005; 93925; 93970; 96365; 96368; 96375; 99251; 99284; J0692; J1650; J1720; J1940; J2405; J3370; J3480; J7040; J7050; P9047; U0003